=== PATIENT | female | born 1960 | race Caucasian/White ===

== ENCOUNTER 2021-12-22 09:36 | Outpatient (REF) | payer BC, SELFPAY ==
[2021-12-22 11:13] LABS: MANUAL DIFF FLAG NO
[2021-12-22 11:32] LABS: Basophils Absolute Auto 0.1 X10*3/uL (0.0-0.2); Basophils Percent Auto 1.1 % (0-2); Eosinophils Absolute Auto 0.3 X10*3/uL (0.0-0.4); Eosinophils Percent Auto 3.6 % (0-4); Hematocrit 39.5 % (37.0-47.0); Hemoglobin 12.7 g/dl (12.0-16.0); Imm Gran Abs Auto 0.02 X10*3/uL (0.00-0.03); Imm Gran Pct Auto 0.3 % (0.0-0.4); Lymphocytes Absolute Auto 2.8 X10*3/uL (1.2-4.9); Lymphocytes Percent Auto 36.7 % (20-40); Mean Corpuscular HGB Conc 32.2 g/dl (31.0-35.0); Mean Corpuscular Hemoglobin 28.7 pg (27.0-33.0); Mean Corpuscular Volume 89.2 fL (80.0-98.0); Monocytes Absolute Auto 0.6 X10*3/uL (0.1-1.2); Monocytes Percent Auto 7.8 % (2-11); Neutrophils Absolute Auto 3.8 x10*3/uL (2.0-8.3); Neutrophils Percent Auto 50.5 % (45-73); Platelet Count 298 X10*3/uL (160-400); Red Blood Count 4.43 X10*6/uL (4.20-5.50); Red Cell Distribution Width 13.6 % (11.0-16.0); White Blood Count 7.5 X10*3/uL (4.8-10.8)
[2021-12-22 12:09] LABS: Alanine Aminotransferase 17 U/L (0-31); Alkaline Phosphatase 117 U/L (39-117); Anion Gap 13 (12-20); Aspartate Amino Transferase 17 U/L (5-31); Bilirubin Total < 0.2 mg/dL (0.0-1.0); Blood Urea Nitrogen 10 mg/dL (9-16); Calcium 8.9 mg/dL (8.4-10.2); Carbon Dioxide 27 mmol/L (22-29); Chloride 108 mmol/L (96-108); Cholesterol 215 mg/dL; Estimated Glomerular Filt Rate > 60; Glucose Random 101 mg/dL (60-115); HDL Cholesterol 48 mg/dL; LDL Cholesterol Calculated 130 mg/dl; Potassium 5.1 mmol/L (3.3-5.1); Sodium 143 mmol/L (135-145); Total Protein 6.7 g/dL (6.5-8.0); Triglycerides 187 mg/dL
[2021-12-22 12:20] LABS: Free T4 (Free Thyroxine) 0.91 ng/dL (0.71-1.85); Thyroid Stimulating Hormone 2.56 uIU/mL (0.32-4.0); Vitamin D 25-OH Total 32.5 ng/mL (>30)
== END 2021-12-22 09:37 | disposition home or self-care (01) ==
LOC: HO.MANLDS 09:36
PROVIDERS: Visit Provider Physician Assistant
DX: Z00.00 Encounter for general adult medical examination without abnormal findings (principal)
CPT/HCPCS: 36415; 80053; 80061; 82306; 84439; 84443; 85025

== ENCOUNTER 2022-01-29 15:14 | Outpatient (REF) | payer BC, SELFPAY ==
--- NOTE | ~2022-01-29 | MM_ITS ---
EXAMINATION: MM SCREENING DIGITAL BREAST TOMOSYNTHESIS, BILATERAL CLINICAL INFORMATION: Screening. Asymptomatic. The lifetime risk of breast cancer based on the Tyrer-Cuzick Model is 5%. COMPARISON: Mammography: 10/25/2017, 10/13/2011 TECHNIQUE: Digital breast tomosynthesis is performed in both the craniocaudal and mediolateral oblique views along with computer-aided detection (CAD). Synthesized 2D images are generated from the tomosynthesis. Additional left MLO view is provided. FINDINGS: There are scattered areas of fibroglandular density (ACR BI-RADS breast composition Category b). There are no significant masses, abnormal calcifications, or other abnormalities. Breast tissue composition borders on heterogeneously dense. Parenchymal pattern is similar to prior studies. No significant changes. The axilla and skin contours are unremarkable. MM/MM tomosynthesis screening BI IMPRESSION: No mammographic evidence of malignancy. ASSESSMENT: BI-RADS 1: Negative RECOMMENDATION: Routine annual mammography screening. This patient's information was entered into a reminder system with a target due date for their next mammogram.
== END 2022-01-29 15:15 | disposition home or self-care (01) ==
LOC: HO.MAMMO 15:14
PROVIDERS: PCP Internal Medicine; Visit Provider Internal Medicine
DX: Z12.31 Encounter for screening mammogram for malignant neoplasm of breast (principal)
CPT/HCPCS: 77063; 77067

== ENCOUNTER 2022-04-02 14:22 | Outpatient (REF) | payer BC, SELFPAY | END 2022-04-02 14:23 | disposition home or self-care (01) | LOC: HO.SH 14:22 | PROVIDERS: Visit Provider Physician Assistant | DX: Z01.118 Encounter for examination of ears and hearing with other abnormal findings (principal); H90.42 Sensorineural hearing loss, unilateral, left ear, with unrestricted hearing on the contralateral side | CPT/HCPCS: 92552; 92556; 92567; 92588; 92700 ==

== ENCOUNTER 2023-02-09 16:50 | Emergency (ER) | payer BC, SELFPAY ==
--- NOTE | ~2023-02-09 | XR_ITS ---
EXAMINATION: XR CHEST CLINICAL INFORMATION: Chest pain COMPARISON: None available. TECHNIQUE: Frontal view of the chest was obtained. FINDINGS: No significant abnormality is noted involving the heart, lungs, mediastinum, bony thorax or soft tissues. XR/XR chest 1V IMPRESSION: Unremarkable examination.
--- NOTE | 2023-02-09 16:53 | ECG_ITS ---
Test Reason : chest pain Blood Pressure : / mmHG Vent. Rate : 080 BPM Atrial Rate : 080 BPM P-R Int : 136 ms QRS Dur : 092 ms QT Int : 388 ms P-R-T Axes : 055 -06 017 degrees QTc Int : 447 ms Normal sinus rhythm RSR' or QR pattern in V1 suggests right ventricular conduction delay Otherwise normal ECG When compared with ECG of 06-AUG-2007 17:08, No significant change was found Referred By: Sissy Pruitt Electronically Signed By:SOWMYA CISNEROS MD
[2023-02-09 17:07] VITALS: BP 177/88; PULSE 88; RESP 17; TEMP 36.2; O2SAT 94; BMI 24.3
--- NOTE | 2023-02-09 17:08 | ED.CHESTPAIN ---
HPI - Chest Pain General Chief Complaint: Chest Pain Stated Complaint: Chest pain/pressure Time Seen by Provider: 02/09/23 19:32 Related Data Allergies Allergy/AdvReac Type Severity Reaction Status Date / Time No Known Allergies Allergy Unverified 12/28/19 14:44 [facility], [facility] Social History Social History Advance Directives: No Advance Directives Information Provided: No Physical Exam Vital Signs: Vital Signs: Last Vital Signs Temp 98 F 02/09/23 19:29 Pulse 74 02/09/23 19:29 Resp 20 02/09/23 19:29 BP 169/71 H 02/09/23 19:29 Pulse Ox 97 02/09/23 19:29 O2 Del Method Room Air 02/09/23 19:29 BMI result Body Mass Index 24.3 Course Course Course Narrative: RME: 62yo F w/PMHx HTN, HLD, 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 Admits took her BP at home and was elevated (did take her meds today). denies SOB BP 177/88 in triage EKG, labs, CXR ordered Full HPI, ROS and PE to be performed by primary ED provider. Medications Administered Discontinued Medications Generic Name Dose Route Start Last Admin Trade Name Freq PRN Reason Stop Dose Admin Potassium Chloride 40 meq 02/09/23 19:58 02/09/23 20:24 Potassium Chloride Packet 20 Meq Packet PO 02/09/23 19:59 40 meq ONCE ONE Administration Medical Decision Making Lab Data 02/09/23 17:28 02/09/23 17:28 Labs: Lab Results 02/09/23 Range/Units 17:28 WBC 7.2 (4.8-10.8) X10*3/uL RBC 4.78 (4.20-5.50) X10*6/uL Hgb 13.7 (12.0-16.0) g/dl Hct 41.2 (37.0-47.0) % MCV 86.2 (80.0-98.0) fL MCH 28.7 (27.0-33.0) pg MCHC 33.3 (31.0-35.0) g/dl RDW 12.8 (11.0-16.0) % Plt Count 309 (160-400) X10*3/uL MPV 9.3 L (9.4-12.3) fL Immature Gran % (Auto) 0.1 (0.0-0.4) % Neut % (Auto) 42.1 L (45-73) % Lymph % (Auto) 48.4 H (20-40) % [place] % (Auto) 6.3 (2-11) % Eos % (Auto) 2.1 (0-4) % Baso % (Auto) 1.0 (0-2) % Lymph # (Auto) 3.5 (1.2-4.9) X10*3/uL [place] # (Auto) 0.5 (0.1-1.2) X10*3/uL Eos # (Auto) 0.2 (0.0-0.4) X10*3/uL Baso # (Auto) 0.1 (0.0-0.2) X10*3/uL Abs Immat Gran (auto) 0.01 (0.00-0.03) X10*3/uL Absolute Neuts (auto) 3.0 (2.0-8.3) x10*3/uL Absolute Nucleated RBC 0.000 (0.0-0.012) X10*3/uL Nucleated RBC % (auto) 0.0 (0.0-0.2) /100WBC Sodium 142 (135-145) mmol/L Potassium 3.1 L D (3.3-5.1) mmol/L Chloride 106 (96-108) mmol/L Carbon Dioxide 25 (22-29) mmol/L Anion Gap 14 (12-20) BUN 8 L (9-16) mg/dL Creatinine 0.72 (0.5-1.4) mg/dL Estim Creat Clear Calc 68.7 Estimated GFR > 60 Random Glucose 97 (60-115) mg/dL Calcium 9.6 D (8.4-10.2) mg/dL Total Bilirubin 0.1 (0.0-1.0) mg/dL Direct Bilirubin < 0.2 (0.0-0.5) mg/dL AST 17 (5-31) U/L ALT 15 (0-31) U/L Alkaline Phosphatase 117 (39-117) U/L Troponin I High Sens < 2.7 (<3.5-17.0) ng/L Total Protein 7.7 (6.5-8.0) g/dL Albumin 4.3 (3.5-5.0) g/dL Discharge Plan Discharge Clinical Impression: Chest pain Instructions: Noncardiac Chest Pain (ED) Additional Instructions: You were seen emergency room for chest pain. The your lab work including serial troponin, EKG, CBC was unremarkable. Your BMP showed a potassium of 3.1 which was repleted with oral potassium. Chest x-ray was within normal limits. At this time he did not require admission however it is important that she follow-up in the next 7 days with your primary care physician. Your blood pressure in the emergency was mildly elevated, we recommend of home dose losartan. Please discuss possible increment of your blood pressure medication with your primary care physician. We also provided you a referral to 1 of our cardiologists please call to schedule an appointment within the next 2 weeks. If before your able to see your primary care physician you have another episode of chest pain+ please return immediately to the ED for evaluation. Referrals: Sanjeev Mac MD [Physician] -
[2023-02-09 17:33] LABS: MANUAL DIFF FLAG NO
[2023-02-09 17:39] LABS: Basophils Absolute Auto 0.1 X10*3/uL (0.0-0.2); Eosinophils Absolute Auto 0.2 X10*3/uL (0.0-0.4); Eosinophils Percent Auto 2.1 % (0-4); Hematocrit 41.2 % (37.0-47.0); Hemoglobin 13.7 g/dl (12.0-16.0); Imm Gran Abs Auto 0.01 X10*3/uL (0.00-0.03); Imm Gran Pct Auto 0.1 % (0.0-0.4); Lymphocytes Absolute Auto 3.5 X10*3/uL (1.2-4.9); Lymphocytes Percent Auto 48.4 % (20-40); Mean Corpuscular HGB Conc 33.3 g/dl (31.0-35.0); Mean Corpuscular Hemoglobin 28.7 pg (27.0-33.0); Mean Corpuscular Volume 86.2 fL (80.0-98.0); Mean Platelet Volume 9.3 fL (9.4-12.3); Monocytes Absolute Auto 0.5 X10*3/uL (0.1-1.2); Monocytes Percent Auto 6.3 % (2-11); Neutrophils Percent Auto 42.1 % (45-73); Platelet Count 309 X10*3/uL (160-400); Red Blood Count 4.78 X10*6/uL (4.20-5.50); Red Cell Distribution Width 12.8 % (11.0-16.0); White Blood Count 7.2 X10*3/uL (4.8-10.8)
[2023-02-09 18:05] LABS: Alanine Aminotransferase 15 U/L (0-31); Albumin Level 4.3 g/dL (3.5-5.0); Alkaline Phosphatase 117 U/L (39-117); Anion Gap 14 (12-20); Aspartate Amino Transferase 17 U/L (5-31); Bilirubin Direct < 0.2 mg/dL (0.0-0.5); Bilirubin Total 0.1 mg/dL (0.0-1.0); Blood Urea Nitrogen 8 mg/dL (9-16); Calcium 9.6 mg/dL (8.4-10.2); Carbon Dioxide 25 mmol/L (22-29); Chloride 106 mmol/L (96-108); Creatinine Clr Calc Pharmacy 68.7; Estimated Glomerular Filt Rate > 60; Glucose Random 97 mg/dL (60-115); Potassium 3.1 mmol/L (3.3-5.1); Sodium 142 mmol/L (135-145); Total Protein 7.7 g/dL (6.5-8.0)
[2023-02-09 18:13] LABS: Troponin-I High Sensitivity < 2.7 ng/L (<3.5-17.0)
[2023-02-09 19:29] VITALS: BP 169/71; PULSE 74; RESP 20; TEMP 36.6; O2SAT 97
--- NOTE | 2023-02-09 19:42 | ED_ITS ---
HPI - Chest Pain General Chief Complaint: Chest Pain Stated Complaint: Chest pain/pressure Time Seen by Provider: 02/09/23 19:32 Source: patient Limitations: no limitations History of Present Illness HPI narrative: 62 years old with past medical history of GERD and hypertension, presents emergency room for chest pain. 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 She then measured blood pressure which was elevated and sat down. While sitting down patient reports a 2nd episode of chest pain also lasting a few minutes and then completely resolved without any intervention. At the time of examination patient reports that her symptoms have resolved, she denies shortness of breath, chills, fever. She is not a smoker, she reports family history of CAD. Patient denies abdominal pain nausea or vomiting, reports intermittent episodes of diarrhea. Patient denies dizziness, lightheadedness, syncope. Risk Factors Coronary artery disease risk factors: hypertension Related Data Allergies Allergy/AdvReac Type Severity Reaction Status Date / Time No Known Allergies Allergy Unverified 12/28/19 14:44 Review of Systems 2 Review of Systems: Yes all other systems are reviewed and are negative [facility] Social History Social History Advance Directives: No Advance Directives Information Provided: No Physical Exam 2 Vital Signs: Vital Signs: Last Vital Signs Temp 98 F 02/09/23 19:29 Pulse 74 02/09/23 19:29 Resp 20 02/09/23 19:29 BP 169/71 H 02/09/23 19:29 Pulse Ox 97 02/09/23 19:29 O2 Del Method Room Air 02/09/23 19:29 BMI result Body Mass Index 24.3 General: Alert, Not in Distress Skin: No rash, warm HEENT: Atraumatic, No Exudate or Pharyngeal Erythema Resp: Normal Breath sounds bilaterally Cardio: Regular rate and Rhythm, Normal S1, S2 Pain is reproducible with palpation. ABD: Abd soft, non tender, no guarding or rebound. Normal Bowel sounds. : No cva tenderness Neuro: Alert, oriented x4, PERRL Strenght 5/5 on all extremities Sensation is preserved in both lower and upper extremities Index to nose: normal Cranial Nerves II-XII grossly intact No dysarthria, or aphasia No neglet. Visual george are normal bilaterally Psych: Cooperative, NO SI Course Reevaluation(s) Reevaluation #1: Patient reports no chest pain, did EKG is unchanged. Second troponin is pending. If negative will discharge patient home. I discussed return precaution with patient including the need to return in case she has another episode of chest pain, shortness of breath, lightheadedness or syncope, patient understands and agrees. Time: 20:48 Reevaluation #2: Second troponin is negative. Patient has a heart score of 3, 2 EKG leads are unchanged, she is not symptomatic for chest pain at this time and pain did not appear to have typical features. 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 Will DC home. Time: 20:55 Medications Administered Discontinued Medications Generic Name Dose Route Start Last Admin Trade Name Freq PRN Reason Stop Dose Admin Potassium Chloride 40 meq 02/09/23 19:58 02/09/23 20:24 Potassium Chloride Packet 20 Meq Packet PO 02/09/23 19:59 40 meq ONCE ONE Administration Medical Decision Making Medical Decision Making MDM Narrative: 62 years old presenting to the emergency room for intermittent episodes of chest pain. Patient heart score is 3 based on age, risk factor and history. Patient reports the pain which in 1 occasion occurred while patient was clinic otherwise does not appears to be exertional, she will was able to walk today without any chest pain and is comfortable the time of examination. Patient lab work showed normal CBC, moderate hypokalemia, negative troponin. I personally reviewed patient's chest x-ray which is normal. I personally reviewed EKG shows normal sinus rhythm. Impression: Musculoskeletal pain, atypical chest pain, costochondritis, ACS Plan: Replete potassium, repeat 2nd troponin Continue to observe patient. Patient has had a score of 3 if 2nd troponin is negative, i think she could be a good candidate for outpatient work up Admission/Observation Consideration of admission/observation: Escalation of care including admission/observation considered Lab Data 02/09/23 17:28 02/09/23 17:28 Labs: Lab Results 02/09/23 02/09/23 Range/Units 17:28 20:15 WBC 7.2 (4.8-10.8) X10*3/uL RBC 4.78 (4.20-5.50) X10*6/uL Hgb 13.7 (12.0-16.0) g/dl Hct 41.2 (37.0-47.0) % MCV 86.2 (80.0-98.0) fL MCH 28.7 (27.0-33.0) pg MCHC 33.3 (31.0-35.0) g/dl RDW 12.8 (11.0-16.0) % Plt Count 309 (160-400) X10*3/uL MPV 9.3 L (9.4-12.3) fL Immature Gran % (Auto) 0.1 (0.0-0.4) % Neut % (Auto) 42.1 L (45-73) % Lymph % (Auto) 48.4 H (20-40) % Pine % (Auto) 6.3 (2-11) % Eos % (Auto) 2.1 (0-4) % Baso % (Auto) 1.0 (0-2) % Lymph # (Auto) 3.5 (1.2-4.9) X10*3/uL [place] # (Auto) 0.5 (0.1-1.2) X10*3/uL Eos # (Auto) 0.2 (0.0-0.4) X10*3/uL Baso # (Auto) 0.1 (0.0-0.2) X10*3/uL Abs Immat Gran (auto) 0.01 (0.00-0.03) X10*3/uL Absolute Neuts (auto) 3.0 (2.0-8.3) x10*3/uL Absolute Nucleated RBC 0.000 (0.0-0.012) X10*3/uL Nucleated RBC % (auto) 0.0 (0.0-0.2) /100WBC Sodium 142 (135-145) mmol/L Potassium 3.1 L D (3.3-5.1) mmol/L Chloride 106 (96-108) mmol/L Carbon Dioxide 25 (22-29) mmol/L Anion Gap 14 (12-20) BUN 8 L (9-16) mg/dL Creatinine 0.72 (0.5-1.4) mg/dL Estim Creat Clear Calc 68.7 Estimated GFR > 60 Random Glucose 97 (60-115) mg/dL Calcium 9.6 D (8.4-10.2) mg/dL Total Bilirubin 0.1 (0.0-1.0) mg/dL Direct Bilirubin < 0.2 (0.0-0.5) mg/dL AST 17 (5-31) U/L ALT 15 (0-31) U/L Alkaline Phosphatase 117 (39-117) U/L Troponin I High Sens < 2.7 < 2.7 (<3.5-17.0) ng/L Total Protein 7.7 (6.5-8.0) g/dL Albumin 4.3 (3.5-5.0) g/dL Scores Heart Score History: -1- moderately suspicious ECG: -0- normal Age: -1- >45 - <65 Risk factory: -1- 1 or 2 risk factors Troponin: -0- < or = normal limit Score: 3 Risk: 1.7% Discharge Plan Discharge Clinical Impression: Chest pain Instructions: Noncardiac Chest Pain (ED) Additional Instructions: You were seen emergency room for chest pain. The your lab work including serial troponin, EKG, CBC was unremarkable. Your BMP showed a potassium of 3.1 which was repleted with oral potassium. Chest x-ray was within normal limits. At this time he did not require admission however it is important that she follow-up in the next 7 days with your primary care physician. Your blood pressure in the emergency was mildly elevated, we recommend of home dose losartan. Please discuss possible increment of your blood pressure medication with your primary care physician. We also provided you a referral to 1 of our cardiologists please call to schedule an appointment within the next [address] chan office to schedule an appointment If before your able to see your primary care physician you have another episode of chest pain+ please return immediately to the ED for evaluation. Referrals: Sanjeev Chan MD [Physician] - (call to schedule an appointment)
[2023-02-09] MEDS: Potassium Chloride Packet 20 MEQ PACKET 40 MEQ PO (20:24)
--- NOTE | 2023-02-09 20:34 | ECG_ITS ---
Test Reason : CHEST PAIN Blood Pressure : / mmHG Vent. Rate : 073 BPM Atrial Rate : 073 BPM P-R Int : 146 ms QRS Dur : 084 ms QT Int : 400 ms P-R-T Axes : 056 010 010 degrees QTc Int : 440 ms Normal sinus rhythm Normal ECG When compared with ECG of 09-FEB-2023 17:20, No significant change was found Referred By: Bunny Yanes Electronically Signed By:SOWMYA CISNEROS MD
[2023-02-09 20:53] LABS: Troponin-I High Sensitivity < 2.7 ng/L (<3.5-17.0)
[2023-02-09 21:12] VITALS: BP 140/71; PULSE 78; RESP 16; O2SAT 95
== END 2023-02-09 21:14 | disposition home or self-care (01) ==
PROVIDERS: Physician Assistant; Emergency Provider Student in an Organized Health Care Education/Training Program; PCP Internal Medicine
DX: R07.9 Chest pain, unspecified (principal); I10 Essential (primary) hypertension; E78.5 Hyperlipidemia, unspecified
CPT/HCPCS: 36415; 71045; 80048; 80076; 84484; 85025; 93005; 99283; 99285

== ENCOUNTER 2023-03-09 11:25 | Outpatient (REF) | payer BC, SELFPAY ==
--- NOTE | ~2023-03-09 | XR_ITS ---
EXAMINATION: XR SHOULDER, LEFT CLINICAL INFORMATION: Reason for Exam PAIN IN LEFT SHOULDER COMPARISON: None TECHNIQUE: Four views of the shoulder. FINDINGS: No acute fracture or dislocation. Mild degenerative changes of the glenohumeral joint joint with degenerative spurring. Soft tissues are unremarkable. XR/XR shoulder LT min 2V IMPRESSION: * Mild degenerative changes of the shoulder.
[2023-03-09 12:58] LABS: Anion Gap 11 (12-20); Blood Urea Nitrogen 13 mg/dL (9-16); Calcium 9.6 mg/dL (8.4-10.2); Carbon Dioxide 29 mmol/L (22-29); Chloride 106 mmol/L (96-108); Estimated Glomerular Filt Rate > 60; Glucose Random 105 mg/dL (60-115); Potassium 4.2 mmol/L (3.3-5.1); Sodium 142 mmol/L (135-145)
== END 2023-03-09 11:26 | disposition home or self-care (01) ==
LOC: HO.LAB 11:25
PROVIDERS: PCP Internal Medicine; Visit Provider Physician Assistant
DX: M25.512 Pain in left shoulder (principal); E87.6 Hypokalemia
CPT/HCPCS: 36415; 73030; 80048

== ENCOUNTER → 2023-03-10 07:38 | Outpatient (REF) | payer BC, SELFPAY ==
--- NOTE | 2023-03-10 07:41 | CA_ITS ---
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 Normal LV ejection fraction of 60 65% with pseudonormal filling pattern 2. Normal cardiac valvular Doppler 3. Normal RV systolic pressure 4. Small pericardial effusion Findings Procedure Information Contrast agent, definity, is being given per protocol without apparent complications. Left Ventricle Normal left ventricular size, thickness, and systolic function. The visually estimated ejection fraction is between 60-65%. Spectral Doppler is indicative of a pseudonormal filling pattern. E/E prime ratio is between 8 and 15 consistent with indeterminate filling pressures. Right Ventricle Normal right ventricular cavity size and systolic function. Atria The left atrium is likely dilated. Interatrial shunt cannot be excluded. The right atrium is normal in size. Aortic Valve The aortic valve was not well visualized. The aortic valve structure and function is likely normal. There is no aortic valve stenosis. There is no aortic valve regurgitation. Mitral Valve Likely normal mitral valve structure and function. There is trace mitral valve regurgitation. There is no mitral valve stenosis. Pulmonic Valve The pulmonic valve was not well visualized. Tricuspid Valve Likely normal tricuspid valve structure and function. There is trace tricuspid valve regurgitation. The right ventricular systolic pressure is normal. The right ventricular systolic pressure is 27 mmHg. Normal right atrial pressure. There is no evidence of pulmonary hypertension. Great Vessels All visible segments of the aorta are normal in size. The pulmonary artery was not well visualized. Venous The inferior vena cava is normal in size and collapses greater than 50% with inspiration. Pericardium/Pleural There is a small circumferential pericardial effusion. There are no definitive echocardiographic findings of tamponade physiology. Prior Study Comparison No prior study available for comparison. Measurements 2D Linear Measurements IVSd: 1.07 0.6-0.9/0.6-1.0 cm LVIDd: 4.68 3.9-5.3/4.2-5.9 cm LVIDd Index: 2.84 2.4-3.2/2.2-3.1 cm/m2 LVIDs: 2.36 2.0-3.6 cm LVPWd: 0.91 0.7-1.1 cm LA Diam: 4.10 2.7-3.8/3.0-4.0 cm LAIDs Index: 2.48 1.5-2.3 cm/m2 LV Mass: 200.48 67-162/88-224 g LV Mass Index: 121.50 43-95/49-115 g/m2 LVOT Diam: 1.80 3.0+(-)1.3 cm 2D Systolic Function EF 4C: 63.10 >55% EF 2C: 68.70 >55% EF BiP: 65.50 >55% Mitral Valve MV Pk E: 1.05 MV PK A: 0.94 MV Decel Time: 156.00 E/A: 1.10 E'Lateral: 6.64 E'Medial: 4.57 E/E' Med: 23.00 E/E' Lat: 15.80 PHT: 46.00 MVA PHT: 4.78 Decel Emanuel: 6.72 Aortic Valve AoV Pk Balwinder: 1.35 AoV Pk Grad: 7.00 RU: 1.97 LVOT LVOT Pk Balwinder: 1.02 LVOT Mn Balwinder: 0.71 LVOT VTI: 0.22 LVOT Pk Grad: 4.00 LVOT Mn Grad: 2.00 LVOT Diam: 1.80 LVOT Area: 2.54 Diastolic Function MV Pk E: 1.05 MV Pk A: 0.94 E/A: 1.10 E'Medial: 4.57 E/E' Med: 23.00 E' Laterial: 6.64 E/E' Lat: 15.80 Right Ventricle TAPSE (mm): 14.60 TVS' Balwinder: 11.40 Tricuspid Valve TR Pk Balwinder: 2.44 TR Pk Grad: 24.00 RA Press: 3.00 RVSP: 27.00 Great Vessels Aorta Sinus of Valsalva: 2.30 2.0-3.5 cm Ao Asc: 2.70 2.1-3.4 cm Ao Arch: 2.50 Pulmonary Veins Pulm Vein S/D 1.40 Pulmonary Valve PV Pk Balwinder: 0.86 Peak PV Grad: 3.00 Updated in Other Vendor System with Status of Final Honorio Carrera MD electronically signed on 03/11/2023 1:40:40 PM with status of Final
--- NOTE | 2023-03-10 09:00 | CA_ITS ---
Acquisition Time: 2023-03-10 08:54:42 Total Exercise Time: 00:05:12 Test Indications: CP Medications: SEE H Protocol: BLUE Max HR: 151 BPM 94% of Pred: 160 BPM Max BP: 152/068 mmHG Max Work Load: 7.0 METS Exercise stress test exercise 5 min 12 sec of Blue protocol achieving 94% MPHR, without anginal symptoms, with isolated PVCs, with normotensive repsonse to exericse, without EKG changes. Test reviewed with Dr. Carrera Referred By: Leda Rizvi Overread By: Trisha Rosenbaum
== END ==
LOC: HO.CARD 07:38
PROVIDERS: PCP Internal Medicine; Visit Provider Physician Assistant
DX: R07.89 Other chest pain (principal)
CPT/HCPCS: 93017; 93306; Q9957

== ENCOUNTER → 2023-03-10 09:00 | Outpatient (BNV) | payer BC, SELFPAY | PROVIDERS: PCP Internal Medicine; Visit Provider Nurse Practitioner | DX: I31.39 Other pericardial effusion (noninflammatory) (principal); R07.89 Other chest pain | CPT/HCPCS: 93016; 93018; 93306 ==

== ENCOUNTER 2023-07-14 13:48 | Emergency (ER) | payer OTHER, SELFPAY ==
--- NOTE | ~2023-07-14 | CT_ITS ---
STUDY: Unenhanced CT of the head and cervical spine INDICATION: Fall COMPARISON: None TECHNIQUE: Continuous helical imaging obtained through the head and cervical spine without IV contrast. Reconstructed images performed in the coronal and sagittal planes. This CT examination was performed using dose optimization techniques as appropriate, variously including the following: *Automated exposure control *Adjustment of mA and/or kV according to patient size (this includes techniques or standardized protocols for targeted exams where dose is matched to indication/reason for exam; i.e. extremities or head) *Use of iterative reconstruction technique TOTAL EXAM DLP: 620 and 262 mGy-cm, head and cervical spine respectively. FINDINGS: Head: Mild atrophy. No intracranial hemorrhage, extra-axial fluid collections fractures or soft tissue hematomas identified following trauma. No evolving infarct, mass lesion, mass effect or midline shift. Intraorbital structures are unremarkable. Sinuses and mastoids free of disease. Cervical spine: Reversal of normal cervical lordosis. Trace anterolisthesis C4 on C5. Mild C5 and C6 vertebral body height losses likely degenerative. C5-C6-C6, 7 spurring and disc space narrowings. Mild right C5-C6 neuroforaminal narrowing. No spinal canal narrowings. Odontoid is intact, posterior elements are aligned and no prevertebral soft tissue swelling seen. Visualized naso and oropharynx are unremarkable. Study limited by motion but soft tissue prominence posterior trachea, axial 12:182 is seen. It is unclear if this is supraglottic or extrinsic and related to the esophagus. Unremarkable thyroid. No pathologic lymphadenopathy. Minor apical pleural thickening otherwise lung apices are clear. CT/CT cervical spine wo IV con IMPRESSION: No acute intracranial or cervical spine pathology. Cervical lordotic reversal and cervical spondylosis. Posterior tracheal tissue density, unclear if supraglottic versus esophageal. Correlate clinically.
--- NOTE | ~2023-07-14 | CT_ITS ---
EXAMINATION: CT ANGIOGRAM CHEST CLINICAL INFORMATION: Chest pain radiating to left back with differing blood pressures in the arms COMPARISON: Chest radiograph 07/14/2023 TECHNIQUE: Multiple axial images were obtained through the chest after the administration of 70 mL of Omnipaque 350 intravenous contrast. Extensive vascular post-processing including two-dimensional and three-dimensional reformatted images were created and reviewed on an independent workstation. This CT examination was performed using dose optimization techniques as appropriate, variously including the following: *Automated exposure control *Adjustment of mA and/or kV according to patient size (this includes techniques or standardized protocols for targeted exams where dose is matched to indication/reason for exam; i.e. extremities or head) *Use of iterative reconstruction technique DLP: 228 mGy-cm VASCULAR FINDINGS: The thoracic aorta appears normal without evidence of aneurysm or dissection. A 4 vessel branching pattern of the arch is seen with a separate origin of the left vertebral artery. The great vessels are all widely patent. The small visualized portion of the abdominal aorta appears unremarkable with patent celiac and SMA. Although not carried out for evaluation of the pulmonary arteries, they're exceptionally well seen and there is no pulmonary emboli detected. The pulmonary veins are unremarkable. NONVASCULAR FINDINGS: LUNGS: The lungs are clear with no evidence of inflammation or nodules. MEDIASTINUM: The mediastinum is normal. CORONARY ARTERY CALCIFICATION: Absent PLEURA: There is no pleural effusion. No pleural mass or thickening. AXILLA: No lymphadenopathy. UPPER ABDOMEN: Unremarkable. OSSEOUS STRUCTURES: Unremarkable. CT/CT angio chest aorta IMPRESSION: No evidence of aortic dissection or aneurysm. No pulmonary emboli are detected. Fleischner guidelines were followed.
--- NOTE | ~2023-07-14 | XR_ITS ---
EXAMINATION: XR CHEST CLINICAL INFORMATION: Pain COMPARISON: 05/12/2022 TECHNIQUE: 2 views of the chest were obtained. FINDINGS: No significant abnormality is noted involving the heart, lungs, mediastinum, bony thorax or soft tissues. XR/XR chest 2V IMPRESSION: Unremarkable examination with no interval change.
[2023-07-14 13:53] VITALS: BP 144/96; PULSE 78; RESP 20; TEMP 36.5; O2SAT 100; BMI 23.9
--- NOTE | 2023-07-14 13:53 | ED.GENADULT ---
HPI - General Adult General Chief complaint: General Medical Stated complaint: High BP, pain L shoulder/arm Time Seen by Provider: 07/14/23 14:56 Source: patient and old records reviewed Mode of arrival: ambulatory Limitations: no limitations History of Present Illness HPI narrative: 63 yo female with PMH of HTN on clonidine, HLD, arthritis, anxiety here with c/o L upper clavicle and shoulder pain intermittent not related to exertion or movement but does hurt to touch. Has also had intermittent stinging in L neck area. BP was elevated this AM 178/80 but takes her clonidine at night. BP was lower in R arm 140s. She has no pain now. She did slip and fall in shower last night no LOC or headstrike - she slipped on the floor. She has not had pain like this before. MD complaint: elevated BP, pain in upper chest and L shoulder Onset (ago): day(s) (last night) Location: chest, left and upper extremity Radiation: non-radiation Severity: moderate Quality: aching Pain Consistency: intermittent Relieving factors: none Exacerbating factors: movement Associated symptoms: denies other symptoms Related Data Allergies Allergy/AdvReac Type Severity Reaction Status Date / Time No Known Allergies Allergy Unverified 12/28/19 14:44 Review of Systems Review of Systems: Constitutional : No Weight loss, No Fever, No Chills ENT/Mouth : No sore throat, No Rhinorrhea Eyes: No Eye Pain, No Swelling Cardiovascular : pos Chest Pain, no SOB, no Dyspnea on Exertion, No Orthopnea, No Edema, No Palpitations Respiratory : No Cough, No Sputum Gastrointestinal : no Nausea, No Vomiting, No Diarrhea, No abdominal Pain, No Hematochezia, No Melena Genitourinary : No Dysuria, No Urinary Frequency Musculoskeletal : No joint pain, No Myalgias, No Joint Swelling Skin : No Skin Lesions, No rash Neuro : No Weakness, No Numbness, No Dizziness, No Headache Psych : No Anxiety/Panic, No Depression All other systems reviewed and are negative FOR[facility]LY [facility], [facility] Past Medical History Attestation statement: The following information was validated with the patient. Source: old records reviewed Medical History Hyperlipidemia Anxiety HTN (hypertension) Social History Social History (Updated 07/14/23 @ 15:25 by Lisandra Enid, DO) Alcohol intake: current Alcohol intake frequency: holidays/special occasions only Patient Tobacco Use Status: Tobacco use Unknown Smoked in Last 30 Days: No Use of substances other than those prescribed or required for medical reasons: No Advance Directives: No Advance Directives Information Provided: Yes Physical Exam ED Vital Signs: Vital Signs - 24 hr 07/14/23 13:53 07/14/23 15:39 07/14/23 18:31 Temperature 97.7 F 98.6 F 97.7 F Pulse Rate 78 72 85 Respiratory Rate 20 17 18 Blood Pressure 144/96 H 139/74 165/88 H Pulse Oximetry 100 96 98 Oxygen Delivery Method Room Air Room Air Room Air 07/14/23 18:32 Temperature 97.7 F Pulse Rate 85 Respiratory Rate 16 Blood Pressure 165/93 H Pulse Oximetry 98 Oxygen Delivery Method Room Air BMI result Body Mass Index 23.9 Appearance: Alert. Oriented X3. No acute distress. Eyes: Pupils equal, round and reactive to light. ENT: Pharynx normal. Neck: Normal inspection. Neck supple. CVS: Normal heart rate and rhythm. Pulses normal. Chest: ttp along L upper chest wall Respiratory: No respiratory distress. Breath sounds normal. Abdomen: Soft and nontender. Skin: Skin warm and dry. Normal skin color. Normal skin turgor. Extremities: No lower extremity edema. No calf ttp Neuro: Oriented X 3. No motor deficit. No sensory deficit. Course Course Course Narrative: This is an RME: Additional HPI, ROS, PE not included below will be deferred to primary provider. This is a [id number]-female, with a hx of GERD and HTN, who presents to the ER with complaints of intermittent left sided chest pain and left shoulder pain since this morning. CP last for about 1 hour and resolves on its own, no current CP. Reporting that last night when she took a shower she flipped backward , reporting that she thinks it was slippery and she fell backwards. Blood pressure varied in both arms, 144/96 in right arm, left arm 170/80. Given discrepancies in blood pressure, talk to charge nurse to bring patient back to a room. She is well-appearing, no back pain or current chest pain. Plan: EKG chest x-ray, CT head and neck, chest x-ray, labs Medications Administered Discontinued Medications Generic Name Dose Route Start Last Admin Trade Name Freq PRN Reason Stop Dose Admin Iohexol 100 ml 07/14/23 17:15 07/14/23 17:16 Iohexol 350 Mg/Ml 100 Ml Infus..Btl IV 07/14/23 17:16 70 ml ONCE ONE Administration Medical Decision Making Medical Decision Making [facility] Narrative: 63 yo female with PMH of HTN on clonidine, HLD, arthritis, anxiety here with c/o L sided chest pain into L shoulder area with differing BP on both arms at this time CT scan of aorta ordered. Trop x 1 ordered pain > 6 hrs. EKG nonischemic. Has no risk factors for VTE no tachycardia, hypoxia or signs of DVT. Did slip in shower last night but no head strike or LOC - CT scans from triage ordered. Differential Diagnosis Differential Diagnoses: The differential diagnosis associated with the presentation includes dissection, chest pain, chest wall pain, anxiety Admission/Observation Consideration of admission/observation: Escalation of care including admission/observation considered work up negative stable for DC Lab Data [facility] Lab Attestation statement: I reviewed the patient's lab results. 07/14/23 14:08 07/14/23 14:08 Labs: Lab Results 07/14/23 07/14/23 Range/Units 14:08 16:21 WBC 8.5 (4.8-10.8) X10*3/uL RBC 4.97 (4.20-5.50) X10*6/uL Hgb 14.2 (12.0-16.0) g/dl Hct 42.9 (37.0-47.0) % MCV 86.3 (80.0-98.0) fL MCH 28.6 (27.0-33.0) pg MCHC 33.1 (31.0-35.0) g/dl RDW 13.2 (11.0-16.0) % Plt Count 300 (160-400) X10*3/uL MPV 9.2 L (9.4-12.3) fL Immature Gran % (Auto) 0.1 (0.0-0.4) % Neut % (Auto) 39.4 L (45-73) % Lymph % (Auto) 52.0 H (20-40) % Person % (Auto) 5.3 (2-11) % Eos % (Auto) 2.1 (0-4) % Baso % (Auto) 1.1 (0-2) % Lymph # (Auto) 4.4 (1.2-4.9) X10*3/uL Person # (Auto) 0.5 (0.1-1.2) X10*3/uL Eos # (Auto) 0.2 (0.0-0.4) X10*3/uL Baso # (Auto) 0.1 (0.0-0.2) X10*3/uL Abs Immat Gran (auto) 0.01 (0.00-0.03) X10*3/uL Absolute Neuts (auto) 3.3 (2.0-8.3) x10*3/uL Absolute Nucleated RBC 0.000 (0.0-0.012) X10*3/uL Nucleated RBC % (auto) 0.0 (0.0-0.2) /100WBC Sodium 142 (135-145) mmol/L Potassium 3.7 (3.3-5.1) mmol/L Chloride 106 (96-108) mmol/L Carbon Dioxide 28 (22-29) mmol/L Anion Gap 12 (12-20) BUN 11 (9-16) mg/dL Creatinine 0.78 (0.5-1.4) mg/dL Estim Creat Clear Calc 62.6 Estimated GFR > 60 Random Glucose 93 (60-115) mg/dL Calcium 9.5 (8.4-10.2) mg/dL Magnesium 2.1 (1.6-2.6) mg/dL Total Bilirubin 0.2 (0.0-1.0) mg/dL Direct Bilirubin < 0.2 (0.0-0.5) mg/dL AST 18 (5-31) U/L ALT 17 (0-31) U/L Alkaline Phosphatase 113 (39-117) U/L Troponin I High Sens < 2.7 < 2.7 (<3.5-17.0) ng/L B-Natriuretic Peptide 23 (<100) pg/mL Total Protein 7.7 (6.5-8.0) g/dL Albumin 4.3 (3.5-5.0) g/dL Lipase 23 (8-78) U/L TSH 2.28 (0.32-4.0) uIU/mL Independent Interpretation I performed an independent interpretation of an: EKG, Plain X-Ray (normal ) and CT Scan (no acute findings. ) Interpretation: Rate: 74 Rhythm: NSR Kaplan: left Normal P waves. Normal LEYDA. Normal QRS complex. ST T wave : normal no ARY qTC: 421 prior studies: no acute ischemia The study has been interpreted contemporaneously by me. . Radiology Impression Discussion of test interpretation with radiology: I have reviewed the radiologist's reading. External Record Review External record reviewed: Inpatient record Prescription Management I considered prescription management with: Other Discharge Plan Discharge Clinical Impression: Atypical chest pain Patient Disposition: Home, Self-Care Instructions: Chest Pain (ED) Additional Instructions: labs on repeat normal for heart, electrocardiogram was normal, normal aorta and no blood clot there was a small area of enlarged tissue seen by trachea your doctor can follow this may need ENT referral return for any worsening symptoms or concerns. your blood pressure has been trending normal now soft tissue prominence posterior trachea Referrals: Mike Da Silva MD [Primary Care Provider] - 1 week Interventions: ED Discharge Assessment Last Done: 07/14/23 18:32 Discharge Date/Time: 07/14/23 18:33
--- NOTE | 2023-07-14 13:58 | ECG_ITS ---
Test Reason : chest pain Blood Pressure : / mmHG Vent. Rate : 074 BPM Atrial Rate : 074 BPM P-R Int : 132 ms QRS Dur : 090 ms QT Int : 380 ms P-R-T Axes : 056 -11 013 degrees QTc Int : 421 ms Normal sinus rhythm Cannot rule out Inferior infarct , age undetermined Abnormal ECG When compared with ECG of 09-FEB-2023 20:42, No significant change was found Referred By: Mine Trevizo Electronically Signed By:ALEXANDRA AARON MD
[2023-07-14 14:13] LABS: MANUAL DIFF FLAG NO
[2023-07-14 14:15] LABS: Basophils Absolute Auto 0.1 X10*3/uL (0.0-0.2); Basophils Percent Auto 1.1 % (0-2); Eosinophils Absolute Auto 0.2 X10*3/uL (0.0-0.4); Eosinophils Percent Auto 2.1 % (0-4); Hematocrit 42.9 % (37.0-47.0); Hemoglobin 14.2 g/dl (12.0-16.0); Imm Gran Abs Auto 0.01 X10*3/uL (0.00-0.03); Imm Gran Pct Auto 0.1 % (0.0-0.4); Lymphocytes Absolute Auto 4.4 X10*3/uL (1.2-4.9); Mean Corpuscular HGB Conc 33.1 g/dl (31.0-35.0); Mean Corpuscular Hemoglobin 28.6 pg (27.0-33.0); Mean Corpuscular Volume 86.3 fL (80.0-98.0); Mean Platelet Volume 9.2 fL (9.4-12.3); Monocytes Absolute Auto 0.5 X10*3/uL (0.1-1.2); Monocytes Percent Auto 5.3 % (2-11); Neutrophils Absolute Auto 3.3 x10*3/uL (2.0-8.3); Neutrophils Percent Auto 39.4 % (45-73); Platelet Count 300 X10*3/uL (160-400); Red Blood Count 4.97 X10*6/uL (4.20-5.50); Red Cell Distribution Width 13.2 % (11.0-16.0); White Blood Count 8.5 X10*3/uL (4.8-10.8)
[2023-07-14 14:33] LABS: Alanine Aminotransferase 17 U/L (0-31); Albumin Level 4.3 g/dL (3.5-5.0); Alkaline Phosphatase 113 U/L (39-117); Anion Gap 12 (12-20); Aspartate Amino Transferase 18 U/L (5-31); Bilirubin Direct < 0.2 mg/dL (0.0-0.5); Bilirubin Total 0.2 mg/dL (0.0-1.0); Blood Urea Nitrogen 11 mg/dL (9-16); Calcium 9.5 mg/dL (8.4-10.2); Carbon Dioxide 28 mmol/L (22-29); Chloride 106 mmol/L (96-108); Creatinine Clr Calc Pharmacy 62.6; Estimated Glomerular Filt Rate > 60; Glucose Random 93 mg/dL (60-115); Lipase 23 U/L (8-78); Magnesium 2.1 mg/dL (1.6-2.6); Potassium 3.7 mmol/L (3.3-5.1); Sodium 142 mmol/L (135-145); Total Protein 7.7 g/dL (6.5-8.0)
[2023-07-14 14:43] LABS: Troponin-I High Sensitivity < 2.7 ng/L (<3.5-17.0)
[2023-07-14 15:39] VITALS: BP 139/74; PULSE 72; RESP 17; TEMP 37; O2SAT 96
[2023-07-14 16:47] LABS: B Type Natriuretic Peptide 23 pg/mL (<100)
[2023-07-14 16:55] LABS: Troponin-I High Sensitivity < 2.7 ng/L (<3.5-17.0)
[2023-07-14 17:01] LABS: TSH reflex Free T4 2.28 uIU/mL (0.32-4.0)
[2023-07-14] MEDS: iohexoL 350 MG/ML 100 ML INFUS..BTL IV (17:16)
[2023-07-14 18:31] VITALS: BP 165/88; PULSE 85; RESP 18; TEMP 36.5; O2SAT 98
[2023-07-14 18:32] VITALS: BP 165/93; PULSE 85; RESP 16; TEMP 36.5; O2SAT 98
== END 2023-07-14 18:33 | disposition home or self-care (01) ==
PROVIDERS: Physician Assistant Medical; Emergency Provider Emergency Medicine; PCP Internal Medicine
DX: R07.89 Other chest pain (principal); I10 Essential (primary) hypertension; Z91.81 History of falling; Z79.899 Other long term (current) drug therapy
CPT/HCPCS: 36415; 70450; 71046; 71275; 72125; 80048; 80076; 83690; 83735; 83880; 84443; 84484; 85025; 93005; 99284; Q9967

== ENCOUNTER → 2023-07-14 13:58 | Outpatient (BNV) | payer OTHER, SELFPAY | PROVIDERS: Emergency Provider Emergency Medicine; PCP Internal Medicine; Visit Provider Internal Medicine Cardiovascular Disease | DX: R07.9 Chest pain, unspecified (principal); R94.31 Abnormal electrocardiogram [ECG] [EKG] | CPT/HCPCS: 93010 ==

== ENCOUNTER 2024-08-22 14:48 | Emergency (ER) | payer OTHER, SELFPAY ==
--- NOTE | ~2024-08-22 | US_ITS ---
EXAMINATION: US TRIPLEX LOWER EXTREMITY, RIGHT CLINICAL INFORMATION: Calf pain. COMPARISON: None available. TECHNIQUE: Color-flow triplex imaging with spectral analysis and compression Doppler were performed on the right lower extremity. FINDINGS: Respiratory variation, normal compression and augmented flow are noted throughout the right lower extremity. The visualized common femoral vein, superficial femoral vein, profunda femoral vein, popliteal vein and midcalf peroneal and posterior tibial venous segments show no evidence of deep venous thrombosis. There is no Costello's cyst. US/US venous duplex LE RT IMPRESSION: No evidence of deep venous thrombosis involving the right lower extremity. Electronically signed by: Hussein Rosenbaum MD 08/22/2024 04:10 PM EDT
--- NOTE | 2024-08-22 14:58 | ED_ITS ---
HPI - General Adult General Chief complaint: Extremity Injury, Lower Stated complaint: Blood clot R leg? Sent by Time Seen by Provider: 08/22/24 17:38 Source: patient Mode of arrival: ambulatory History of Present Illness ED Provider: Dr. 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 and she had not had this problem before she is concerned there is something worse going on in the past when she has had this problem is related to sciatica or herniated disc Related Data Previous Rx's ?Medication ?Instructions ?Recorded acetaminophen 325 mg tablet 325 mg PO QID PRN pain #90 tabs 08/22/24 (Tylenol) lidocaine 5 % topical patch 1 patch topical DAILY back pain 08/22/24 #30 ea prednisone 20 mg tablet 60 mg (3 x 20 mg) PO DAILY Asthma 08/22/24 5 days #15 tabs Allergies Allergy/AdvReac Type Severity Reaction Status Date / Time No Known Allergies Allergy Verified 08/22/24 15:16 Review of Systems 2 Review of Systems: Review of systems: General: Patient denies any fever chills recent illness or falls Musculoskeletal: Denies back pain or body aches or other injuries HEENT: denies headache, runny nose, ear pain Respiratory: denies shortness of breath, cough Cardiovascular: no chest pain or palpitations : denies dysuria, frequency Abdomen: no nausea vomiting denies abdominal pain Extremities: no swelling, right leg pain was the entire leg knowledge of the right calf Skin: no diaphoresis Yes all other systems are reviewed and are negative [facility] Past Medical History Medical History Hyperlipidemia Anxiety HTN (hypertension) Social History Social History (Updated 07/14/23 @ 15:25 by Lisandra Padron DO) Alcohol intake: current Alcohol intake frequency: holidays/special occasions only Patient Tobacco Use Status: Tobacco use Unknown Advance Directives: No Advance Directives Information Provided: No Physical Exam ED Vital Signs: Vital Signs - 24 hr 08/22/24 15:15 Temperature 98.4 F Pulse Rate 72 Respiratory Rate 18 Blood Pressure 172/63 H Pulse Oximetry 95 Oxygen Delivery Method Room Air BMI result Body Mass Index 22.4 General: Well-appearing well-nourished in no signs of distress HEENT: Normocephalic atraumatic Neck: No signs of JVD, no masses no tenderness or lymphadenopathy Cardiovascular: Regular rate and rhythm Respiratory: Clear to auscultation bilaterally Abdomen: Soft nontender no masses Extremities: Normal pedal pulses no signs of edema he is not reproducible on exam Skin: Dry warm no rashes Back: No tenderness full ROM Course Course Course Narrative: This is a rapid medical exam performed by Valerie Angeles NP: Additional HPI, ROS, PE not included below will be deferred to primary provider. Patient is a 64-year-old female presenting with complaint of right lower leg pain pain, referred by PCP to rule out DVT. States last night pain was to entire right leg, this am just lower leg. Denies recent travel, has not smoke in long time. Denies chest pain, palpitations, dyspnea. Plan: Labs, U/S Medical Decision Making Medical Decision Making [facility] Narrative: ultrasound and labs are all unremarkable I did explain to the patient recommend Tylenol ibuprofen follow up with a doctor she is not diabetic I started her short course of prednisone as well as follow up with her doctor. Differential Diagnosis Differential Diagnoses: The differential diagnosis associated with the presentation includes DVT and certainly injury thigh injury sciatica herniated disc Lab Data [facility] Lab Attestation statement: I reviewed the patient's lab results. 08/22/24 15:13 08/22/24 15:13 Labs: Lab Results 08/22/24 Range/Units 15:13 WBC 8.5 (4.8-10.8) X10*3/uL RBC 4.68 (4.20-5.50) X10*6/uL Hgb 13.3 (12.0-16.0) g/dl Hct 39.9 (37.0-47.0) % MCV 85.3 (80.0-98.0) fL MCH 28.4 (27.0-33.0) pg MCHC 33.3 (31.0-35.0) g/dl RDW 13.2 (11.0-16.0) % Plt Count 269 (160-400) X10*3/uL MPV 9.2 L (9.4-12.3) fL Immature Gran % (Auto) 0.2 (0.0-0.4) % Neut % (Auto) 46.2 (45-73) % Lymph % (Auto) 44.2 H (20-40) % [place] % (Auto) 6.8 (2-11) % Eos % (Auto) 1.8 (0-4) % Baso % (Auto) 0.8 (0-2) % Lymph # (Auto) 3.8 (1.2-4.9) X10*3/uL [place] # (Auto) 0.6 (0.1-1.2) X10*3/uL Eos # (Auto) 0.2 (0.0-0.4) X10*3/uL Baso # (Auto) 0.1 (0.0-0.2) X10*3/uL Abs Immat Gran (auto) 0.02 (0.00-0.03) X10*3/uL Absolute Neuts (auto) 3.9 (2.0-8.3) x10*3/uL Absolute Nucleated RBC 0.000 (0.0-0.012) X10*3/uL Nucleated RBC % (auto) 0.0 (0.0-0.2) /100WBC PT 11.0 (10.9-12.4) SEC INR 1.0 (0.9-1.1) Sodium 142 (135-145) mmol/L Potassium 4.0 (3.3-5.1) mmol/L Chloride 105 (96-108) mmol/L Carbon Dioxide 26 (22-29) mmol/L Anion Gap 15 (12-20) BUN 16 (9-16) mg/dL Creatinine 0.75 (0.5-1.4) mg/dL Estim Creat Clear Calc 70.0 Estimated GFR > 60 Random Glucose 96 (60-115) mg/dL Calcium 9.4 (8.4-10.2) mg/dL Total Bilirubin 0.3 (0.0-1.0) mg/dL AST 22 (5-31) U/L ALT 26 (0-31) U/L Alkaline Phosphatase 127 H (39-117) U/L Total Protein 7.3 (6.5-8.0) g/dL Albumin 4.2 (3.5-5.0) g/dL Independent Interpretation I performed an independent interpretation of an: Ultrasound Radiology Impression Discussion of test interpretation with radiology: I have reviewed the radiologist's reading. Discharge Plan Discharge Clinical Impression: Acute pain of right lower extremity Patient Disposition: Home, Self-Care Instructions: Leg Cramps (ED), Leg Pain (ED) Additional Instructions: You were seen today in the emergency department for right leg pain. You had labs as well as an ultrasound done there was no blood clot and no lab abnormalities. This could be related to leg pain or even sciatica hernia has been in the past. Only started him short course of prednisone if you have worsening pain or any other concerns please return to the ER. Prescriptions: New acetaminophen [Tylenol] 325 mg tablet 325 mg PO QID PRN (Reason: pain) Qty: 90 0RF prednisone 20 mg tablet 60 mg PO DAILY 5 Days Qty: 15 0RF lidocaine 5 % adhesive patch,medicated 1 patch topical DAILY Qty: 30 0RF Rx Instructions: leave on most painful area for up to 12 hrs Stand Alone Forms: Work/School Release Print Language: Uz[place]
[2024-08-22 15:15] VITALS: BP 172/63; PULSE 72; RESP 18; TEMP 36.9; O2SAT 95; BMI 22.4
[2024-08-22 15:17] LABS: MANUAL DIFF FLAG NO
[2024-08-22 15:18] LABS: Basophils Absolute Auto 0.1 X10*3/uL (0.0-0.2); Basophils Percent Auto 0.8 % (0-2); Eosinophils Absolute Auto 0.2 X10*3/uL (0.0-0.4); Eosinophils Percent Auto 1.8 % (0-4); Hematocrit 39.9 % (37.0-47.0); Hemoglobin 13.3 g/dl (12.0-16.0); Imm Gran Abs Auto 0.02 X10*3/uL (0.00-0.03); Imm Gran Pct Auto 0.2 % (0.0-0.4); Lymphocytes Absolute Auto 3.8 X10*3/uL (1.2-4.9); Lymphocytes Percent Auto 44.2 % (20-40); Mean Corpuscular HGB Conc 33.3 g/dl (31.0-35.0); Mean Corpuscular Hemoglobin 28.4 pg (27.0-33.0); Mean Corpuscular Volume 85.3 fL (80.0-98.0); Mean Platelet Volume 9.2 fL (9.4-12.3); Monocytes Absolute Auto 0.6 X10*3/uL (0.1-1.2); Monocytes Percent Auto 6.8 % (2-11); Neutrophils Absolute Auto 3.9 x10*3/uL (2.0-8.3); Neutrophils Percent Auto 46.2 % (45-73); Platelet Count 269 X10*3/uL (160-400); Red Blood Count 4.68 X10*6/uL (4.20-5.50); Red Cell Distribution Width 13.2 % (11.0-16.0); White Blood Count 8.5 X10*3/uL (4.8-10.8)
[2024-08-22 16:09] LABS: Alanine Aminotransferase 26 U/L (0-31); Albumin Level 4.2 g/dL (3.5-5.0); Anion Gap 15 (12-20); Aspartate Amino Transferase 22 U/L (5-31); Bilirubin Total 0.3 mg/dL (0.0-1.0); Blood Urea Nitrogen 16 mg/dL (9-16); Calcium 9.4 mg/dL (8.4-10.2); Carbon Dioxide 26 mmol/L (22-29); Chloride 105 mmol/L (96-108); Estimated Glomerular Filt Rate > 60; Glucose Random 96 mg/dL (60-115); Sodium 142 mmol/L (135-145); Total Protein 7.3 g/dL (6.5-8.0)
[2024-08-22 16:40] LABS: Alkaline Phosphatase 127 U/L (39-117)
--- OUTSIDE RECORDS SUMMARY | 2024-08-22 17:15 | XMS_ITS | Data Portability ---
Author Organization [facility] Home Service Address [address] [place] [address] Assessment Encounter Date Assessment Date Assessment LastModified by Organization Details LastModified Time 12/22/2021 12/22/2021 The patient denies recent falls or recurrent falls. Denies instability, weakness, abnormal gait, or difficulties with movement. The patient wears correct, supportive shoes and is not otherwise severely visually impaired. The patient is full weight bearing and if using the assistance of a cane or walker feels supported and stable with the use of such devices. All medical conditions have been taken into account that may pose a risk for the patient for falls. Home alyssa, carpets and/or rugs do not pose a challenge for the patient. The patient has been educated about the use of vitamin D supplementation for bone health and prevention of hypotensive episodes that may increase risk for fall. All question and concerns were answered to the patient's satisfaction. [email or web address] Not available 12/22/2021 09:15:20 Plan of Treatment Reminders Order Date Submit Date Provider Last Modified By Organization Details Last Modified Time Details Appointments None recorded. Lab BMP, serum or plasma 2022 023 [facility] (Lab), [address] [place] [address], [address], 3 11:24:59 CMP, serum or plasma 2021 022 [facility], [address] [place] [address], [address], 2 13:00:03 CBC w/ auto diff 2021 022 [facility], [address] [place] [address], [place], [address], 13:00:03 lipid panel, blood 2021 [facility], [address] [place] [address], [address], 13:00:03 TSH + free T4, serum 2021 [facility], [address] [place] [address], [address], 13:00:03 vitamin D, 25-hydroxy , total, serum 2021 [facility], [address] [place] [address], [address], 09:25:[address] referral 2023 024 kanika Gomez MD, [address] , [facility], [place], [address], 4 08:12:47 gastroente rologist referral 2022 023 kanika Belcher MD, [address] [place], [address], 3 08:13:42 ophthalmol ogist referral 2021 022 [email or web address] 10 Tj Hatfield MD, [address] [facility] [address] [facility], [place], [address], 2 09:47:58 audiologis t referral 2021 022 [email or web address] 10 [facility], [address] [facility] [place], [address], 2 07:53:[address] referral 2021 022 SUSAN Herman MD, [address] [facility], [place], [address], 2 10:16:54 Procedures None recorded. Surgeries None recorded. Imaging CT, chest, w/o contrast 2023 024 [facility] (Imaging), [address] [place], [address], 4 14:15:00 XR, shoulder, 2 or more view 2022 023 [facility], [address] [place], [address], 3 08:41:23 US, echocardio gram 2022 023 [facility] (Imaging), [address] [place], [address], 3 08:38:41 exercise stress test 2022 023 [facility], [address] [place], [address], 3 08:41:53 Medication Orders metoprolol succinate ER 25 mg tablet,ext ended release 24 hr 2024 025 [facility], [address] [place], [address], 5 14:43:53 clonidine HCl 0.2 mg tablet 2024 025 [facility], [address] [place], [address], 5 14:43:53 atorvastat in 10 mg tablet 2024 025 [facility], [address] [place], [address], 5 14:43:55 metoprolol succinate ER 25 mg tablet,ext ended release 24 hr 2023 024 [facility], [facility] [place], [address], 4 10:29:19 amlodipine 5 mg tablet 2022 023 [facility], [facility] [place], [address], 3 14:58:55 triamcinol one acetonide 0.1 % topical cream 2021 022 [facility], [address] [place] [address], [address], 2 09:09:20 Patient TargetsNo targets recorded. Patient InstructionsNo instructions recorded. 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 Referring Physician: Leda Rizvi, Internal Medicine, Encounter Date: 12/22/2021 Distribution Technician Referral for Gastroesophageal reflux disease worsening GERD symptoms and ongoing diarrhea Referring Physician: Leda Rizvi, Internal Medicine, Encounter Date: 02/12/2023 Credit Rating Checker Referral for At ypical chest pain ongoing atypical chest pain and elevated BP Referring Physician: Leda Rizvi, Internal Medicine, Encounter Date: 07/23/2023 Results Created Date Observation Date Name Description Value Unit Range Abnormal Flag Note LastModifiedBy Organization Detail LastModifiedTime 02/01/20 22 01/29/2022 MAMMO , maria de torres, digit al, bilat eral No observ ation record ed. [facility] [address] [place], [address], 01/31/2022 12:03:14 02/10/20 23 02/09/2023 XR, chest , 2 view No observ ation record ed. [facility] (Medical Records) [address] [place], [address], 02/10/2023 06:38:55 03/10/20 23 03/10/2023 exerc ise stres s test No observ ation record ed. [facility] (Medical Records) [address] [place], [address], 03/10/2023 15:14:58 03/11/20 23 03/10/2023 US, echoc ardio gram No observ ation record ed. [email or web address] (Medical Records) [address] [facility], [address], 03/12/2023 15:47:52 03/11/20 23 03/09/2023 XR, shoul jemma, 2 or more view No observ ation record ed. [facility] (Medical Records) [address] [place], [address], 03/12/2023 15:32:40 07/14/19 24 07/14/2023 XR, chest , 2 view No observ ation record ed. [email or web address] (Medical Records) [address] [facility], [address], 07/14/2023 15:42:33 07/14/19 24 07/14/2023 CT, head + brain , w/o contr ast No observ ation record ed. [email or web address] (Medical Records) [address] [facility], [address], 07/14/2023 15:42:53 07/14/19 24 07/14/2023 CT, cervi kiki spine , w/o contr ast No observ ation record ed. [email or web address] [facility] (Medical Records) [address] [place], [address], 07/14/2023 15:43:31 07/14/19 24 07/14/2023 angio gram (PROC ) No observ ation record ed. [email or web address] [facility] (Medical Records) [address] [place], [address], 07/16/2023 08:31:34 11/15/19 24 11/12/2023 ankle brach ial index No observ ation record ed. [facility] [address], [place], [address], 11/15/2023 08:44:51 12/01/19 24 11/30/2023 myoca rdial perfu yared study w/ eject ion fract ion (PROC ) No observ ation record ed. [facility] [address], [place], [address], 12/01/2023 14:07:11 08/23/19 25 08/22/2024 imagi ng/di agnos tic resul t No observ ation record ed. [facility] (Medical Records) [address] [place], [address], 08/22/2024 16:14:54 08/23/19 25 08/22/2024 imagi ng/di agnos tic resul t No observ ation record ed. [facility] (Medical Records) [address] [place], [address], 08/22/2024 16:15:34 Result Notes None recorded. Problems Name Problem SNOMED Code Status Onset Date Resolution Date Notes Provider Name and Address Organization Details Recorded Time Hypercho lesterol emia 58070223 Active 2017 Not Available [facility] 1 11:56:26 Anxiety 56034847 Active 2019 per santiago manuel Not Available [facility] 1 11:56:26 Recurren t depressi on 115528921 Active 2019 per santiago manuel Not Available [facility] 11:56:26 Acid reflux 963417838 Active 2019 Not Available [facility] 11:56:26 Eczema 17070367 Active 2021 KENNY ROMERO [address] [place], [address], [facility] 2 16:42:27 Nasal congesti on 13561720 Active 2021 KENNY ROMERO [address] [place], [address], [facility] 2 11:33:33 Fever with chills 941294598 Active 2021 KENNY ROMERO [address] [place], [address], [facility] 2 11:33:46 Cough 56097972 Active 2021 KENNY ROMERO [address] [place], [address], [facility] 2 11:34:13 COVID-19 565718166 Active 2021 KENNY ROMERO [address] [place], [address], [facility] 2 11:56:32 Follicul itis 01665365 Active 2021 KENNY ROMERO [address] [place], [address], [facility] 2 09:07:31 Hearing loss 49598378 Active 2021 KENNY ROMERO [address] [place], [address], [facility] 2 09:13:31 Blurring of visual image 649997683 Active 2021 KENNY ROMERO [address] [place], [address], [facility] 2 09:15:31 Herpes labialis 4547637 Active 2022 on lip of mouth Mike Da Silva, DO [address] [place], [address], [facility] 3 14:51:23 Gastroes ophageal reflux disease 261646666 Active 2022 KENNY ROMERO [address] [place], [address], [facility] 3 13:37:48 Pain of left shoulder joint 51467867042 416222 Active 2022 KENNY ROMERO [address] [place], [address], [facility] 3 13:39:13 Atypical chest pain 654723583 Active 2022 KENNY ROMERO [address] [place], [address], [facility] 3 13:40:33 Hypokale charles 25753490 Active 2022 KENNY ROMERO [address] [place], [address], [facility] 3 13:43:30 Pericard ial effusion 380872967 Active 2022 KENNY ROMERO [address] [place], [address], [facility] 3 15:32:06 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 Procedures Surgical History Date Name Laterality Status Provider Name and Address Organization Details Recorded Time 10/11/19 18 Most Recent Mammogram completed Allegra Gaming NP, S [address] [place] [address], [address], [facility] 11/09/2017 15:05:50 04/12/19 13 Date of Last Pap Smear completed Allegra Gaming NP, S [address] [place] [address], [address], [facility] 11/09/2017 15:04:15 Dilation of cervical canal completed Allegra Gaming NP, S [address] [place] [address], [address], [facility] 11/09/2017 15:03:49 Imaging Results Imaging Date Name Status LastModified by Organization Details LastModified Time 01/29/2022 MAMMO, screening, digital, bilateral completed [facility] [address] [place], [address], 01/31/2022 12:03:14 02/09/2023 XR, chest, 2 view completed [facility] (Medical Records) [address] [place], [address], 02/10/2023 06:38:55 03/10/2023 exercise stress test completed [facility] (Medical Records) [address] [place], [address], 03/10/2023 15:14:58 03/10/2023 US, echocardiogram completed [email or web address] [place] [address] (Medical Records) [address] [place], [address], 03/12/2023 15:47:52 03/09/2023 XR, shoulder, 2 or more view completed [facility] (Medical Records) [address] [place], [address], 03/12/2023 15:32:40 07/14/2023 XR, chest, 2 view completed [address] (Medical Records) [address] [place], [address], 07/14/2023 15:42:33 07/14/2023 CT, head + brain, w/o contrast completed [address] (Medical Records) [address] [place], [address], 07/14/2023 15:42:53 07/14/2023 CT, cervical spine, w/o contrast completed [address] (Medical Records) [address] [place], [address], 07/14/2023 15:43:31 07/14/2023 angiogram (PROC) completed [address] (Medical Records) [address] [place], [address], 07/16/2023 08:31:34 11/12/2023 ankle brachial index completed [facility] [address], [place], [address], 11/15/2023 08:44:51 11/30/2023 myocardial perfusion study w/ ejection fraction (PROC) completed [facility] [address], [place], [address], 12/01/2023 14:07:11 08/22/2024 imaging/diagnosti c result active [facility] (Medical Records) [address] [place], [address], 08/22/2024 16:14:54 08/22/2024 imaging/diagnosti c result active [facility] (Medical Records) [address] [place], [address], 08/22/2024 16:15:34 Procedure Notes None recorded. Medical Equipment None Reported. Allergies No known drug allergies Medications Name Sig Start Date Stop Date Status Note LastModified by Organization Details LastModified Time atorvastati n 10 mg tablet TAKE ONE TABLET BY MOUTH EVERY DAY 2024 active Not Available Not Available Not Avai lable azithromyci n 250 mg tablet TAKE TWO TABLETS BY MOUTH ONE DOSE ON THE FIRST DAY, THEN TAKE ONE TABLET DAILY THEREAFTE R. 12/22 completed Not Available Not Available Not Available valacyclovi r 1 gram tablet TAKE ONE TABLET BY MOUTH EVERY 12 HOURS FOR 7 DAYS 08/12 completed Not Available Not Available Not Available clonazepam 0.5 mg tablet TAKE ONE TABLET BY MOUTH TWICE A DAY active Not Available Not Available No t Available amlodipine 5 mg tablet TAKE ONE TABLET BY MOUTH ONCE DAILY 03/26 completed Not Available Not Available Not Available ciprofloxac in 500 mg tablet 10/15 completed Not Available Not Available Not Available triamcinolo ne acetonide 0.1 % topical cream APPLY A THIN LAYER TO THE AFFECTED AREAS TOPICALLY TWO TIMES A DAY active Not Available Not Available No t Available lamotrigine 25 mg tablet TAKE THREE TABLETS BY MOUTH EVERY DAY active Not Available Not Available No t Available clonidine HCl 0.2 mg tablet Take 1 tablet every day by oral route as directed for 30 days. 2024 active Not Available Not Available Not Avai lable famotidine 20 mg tablet Take 1 tablet twice a day by oral route. active Not Available Not Available No t Available metronidazo le 0.75 % topical cream 10/15 completed Not Available Not Available Not Available losartan 25 mg tablet TAKE ONE TABLET BY MOUTH TWICE A DAY - NEED APPOINTME NT FOR REFILLS active Not Available Not Available No t Available betamethaso ne dipropionat e 0.05 % topical cream APPLY A THIN LAYER TO THE AFFECTED AREA(S) ONCE DAILY active Not Available Not Available No t Available omeprazole 20 mg capsule,del ayed release TAKE ONE CAPSULE BY MOUTH EVERY DAY active Not Available Not Available No t Available codeine 10 mg-guaifene sin 100 mg/5 mL oral liquid TAKE 10ML BY MOUTH EVERY 4 HOURS FOR 7 DAYS 12/22 completed Not Available Not Available Not Available furosemide 20 mg tablet TAKE ONE TABLET BY MOUTH ONCE DAILY FOR 14 DAYS 08/12 completed Not Available Not Available Not Available metoprolol succinate ER 25 mg tablet,exte nded release 24 hr Take 1 tablet(s) every day by oral route as directed for 30 days. active Not Available Not Available No t Available ibuprofen 600 mg tablet TAKE ONE TABLET BY MOUTH EVERY 6 HOURS NEEDED FOR LOWER BACK PAIN 10/21 completed Not Available Not Available Not Available estradiol 0.01% (0.1 mg/gram) vaginal cream USE 1 GRAM VAGINALLY 3 TIMES A WEEK 10/21 completed Not Available Not Available Not Available sertraline 50 mg tablet TAKE 1.5 TABLETS BY MOUTH ONCE DAILY active Not Available Not Available No t Available naproxen 500 mg tablet 11/09 completed Not Available Not Available Not Available mometasone 0.1 % topical cream APPLY SMALL AMOUNT TO THE AFFECTED AREA ONCE PER DAY 10/21 completed Not Available Not Available Not Available amoxicillin 875 mg-potassiu m clavulanate 125 mg tablet TAKE 1 TABLET BY MOUTH TWICE DAILY 12/22 completed Not Available Not Available Not Available cholestyram ine (with sugar) 4 gram oral powder Take 1 scoop twice a day by oral route. 05/23 completed Not Available Not Available Not Available nitrofurant oin monohydrate /macrocryst als 100 mg capsule TAKE 1 CAPSULE BY MOUTH TWICE DAILY 12/22 completed Not Available Not Available Not Available sertraline 10/15 completed Not Available Not Available Not Available atorvastati n 10/15 completed Not Available Not Available Not Available omeprazole 10/15 completed Not Available Not Available Not Available losartan 10/15 completed Not Available Not Available Not Available Lamictal 10/15 completed Not Available Not Available Not Available clonazepam 10/15 completed Not Available Not Available Not Available multivitami n 1 PO QD active Not Available Not Available Not Available Finacea active Not Available Not Avail able Not Available diclofenac 1 % topical gel APPLY 2 GRAMS TOPICALLY TO AFFECTED AREA FOUR TIMES A DAY 02/12 completed Not Available Not Available Not Available Finacea 15 % topical foam APPLY SMALL AMOUNT ONTO THE AFFECTED AREA TWICE PER DAY 12/22 completed Not Available Not Available Not Available Narcan 4 mg/actuatio n nasal spray 10/15 completed Not Available Not Available Not Available Afluria (PF) 45 mcg(15 mcg x 3)/0.5 mL intramuscul ar syringe 10/15 completed Not Available Not Available Not Available Flucelvax Quad (PF) 60 mcg (15 mcg x 4)/0.5 mL IM syringe 10/21 completed Not Available Not Available Not Available Flucelvax Quad (PF) 60 mcg (15 mcg x 4)/0.5 mL IM syringe 10/21 completed Not Available Not Available Not Available Afluria Qd 2019- (36 mos up)(PF)60 mcg (15 mcg x4)/0.5 mL IM syringe ADM 0.5ML IM UTD 10/21 completed Not Available Not Available Not Available Paxlovid 300 mg (150 mg x 2)-100 mg tablets in a dose pack TAKE 3 TABLETS BY MOUTH TWICE DAILY FOR 5 DAYS 11/17 completed Not Available Not Available Not Available Vitals Date Recorded Body height Body mass index (BMI) Body weight Oxygen saturation Oxygen saturation in Arterial blood by Pulse oximetry Heart rate Systolic blood pressure Diastolic blood pressure Provider Name and Address Organization Details Last Updated DateTime 2 160.02 cm 23.3 kg/m2 24132.1 2 g 98 % 98 % 95 /min 130 mm[Hg] 70 mm[Hg] Jia Corea [facility] 2 08:59:18 Date Recorded Body height Body mass index (BMI) Body weight Heart rate Oxygen saturation Oxygen saturation in Arterial blood by Pulse oximetry Systolic blood pressure Diastolic blood pressure Provider Name and Address Organization Details Last Updated DateTime 3 160.02 cm 23.2 kg/m2 96706.6 g 113 /min 92 % 92 % 144 mm[Hg] 80 mm[Hg] Puja Kilgore [facility] 3 13:34:57 Date Recorded Body height Body mass index (BMI) Body weight Heart rate Oxygen saturation Oxygen saturation in Arterial blood by Pulse oximetry Systolic blood pressure Diastolic blood pressure Provider Name and Address Organization Details Last Updated DateTime 4 160.02 cm 23 kg/m2 58336.0 1 g 74 /min 98 % 98 % 148 mm[Hg] 84 mm[Hg] Satinder Hanover [facility] 4 10:11:52 Date Recorded Body height Body mass index (BMI) Body weight Heart rate Oxygen saturation Oxygen saturation in Arterial blood by Pulse oximetry Systolic blood pressure Diastolic blood pressure Provider Name and Address Organization Details Last Updated DateTime 4 160.02 cm 23.9 kg/m2 24443.6 9 g 95 /min 96 % 96 % 142 mm[Hg] 82 mm[Hg] Vanessa Price [facility] 4 09:27:45 Date Recorded Body height Body mass index (BMI) Body weight Heart rate Oxygen saturation Oxygen saturation in Arterial blood by Pulse oximetry Systolic blood pressure Diastolic blood pressure Provider Name and Address Organization Details Last Updated DateTime 5 160.02 cm 24.8 kg/m2 84914.9 3 g 66 /min 98 % 98 % 132 mm[Hg] 76 mm[Hg] KENNY ROMERO [address] [place] [address], [phone] 5 14:10:21 Social History Question Answer Notes LastModified by Organizat ion Details LastModified Time Tobacco Smoking Status Former Smoker 20 years Not Available [employer] 02/13/2020 03:36:23 What Was The Date Of Your Most Recent Tobacco Screening? 06/13/2024 [email or web address] Information not available 06/13/2024 Sex: Unknown Functional Status Question Answer Note LastModified by Organization D etails LastModified Time Do you or have you ever used any other forms of tobacco or nicotine? No [email or web address] Information not available 02/12/2023 Mental Status None recorded. Family History Nothing Reported. Medical History Condition Response Coronary Artery Disease N Gout N Kidney Stones N Blood Diseases N Hyperthyroidism N Blood Transfusion N COPD N Depression Y Anxiety Disorder Y Muscle, Joint, or Bone Problems N Obesity N Arthritis N Polyps N Mental Disorder N Cancer N Varicosities N Stroke N Headaches N Fibromyalgia N Kidney Disease N Heart Problems N Hospitalizations N Eating Disorder N Skin Problems Y MRSA exposure N Constipation N Asthma N Hepatitis N Pulmonary Embolism N Chicken Pox Autism Spectrum Disorder (ASD) N Thrombophilias N Breast Cancer N Lung Disease N Hypothyroidism N Defects or Inherited Disease N Difficulty Swallowing N Anesthesia Complications N Meniere's disease N Bladder or Kidney Problems N High Cholesterol Y Liver Disease N Allergies/Hayfever N Thyroid Problems N GI Problems Y Anemia N Mental Illness Y Diabetes N Ovarian Cancer N Seizures/Epilepsy N Congestive Heart Failure (CHF) N Eczema Y Abuse/Domestic Violence N Diverticulitis N Reflux/GERD Y Heart Disease N Hypertension Y Osteoporosis N Gynecological History Statement/Question Response Abnormal Pap N STIs/STDs N HPV Vaccine N Current Control Method Menopause Most Recent Mammogram 10/10/2017 Age at Menarche 14 Age at First Child 21 If Post Menopausal, Age at Menopause 54 Sexually Active? Y Date of Last Pap Smear 04/12/2012 Sexual Problems? Y Obstetrics History GPAL:G 0 P 0 0 0 0 Immunizations Vaccine Type Date Status Note Provider Nam e and Address Organization Details Recorded Time Influenza, split virus, quadrivalent, preservative 8 completed Xochilt loyola [facility] 01/12/2018 08:34:42 Influenza, split virus, quadrivalent, preservative 1 completed Jia loyola [facility] 12/22/2021 08:20:06 COVID-19, mRNA, LNP-S, PF, 30 mcg/0.3 mL dose 1 completed Jia loyola [facility] 12/22/2021 08:20:24 Influenza, split virus, quadrivalent, preservative 0 completed Shameka loyola [facility] 01/31/2020 13:51:35 COVID-19, mRNA, LNP-S, PF, 30 mcg/0.3 mL dose 1 completed Dhara loyola [facility] 05/03/2020 11:25:03 COVID-19, mRNA, LNP-S, PF, 30 mcg/0.3 mL dose 1 vasquez loyola [facility] 05/24/2020 12:02:38 Past Encounters Encounter ID Performer Location Encounter Start Date Encounter Closed Date Diagnosis/Indication Diagnosis SNOMED-CT Code Diagnosis ICD10 Code Diagnosis Note [id number] Mike Da Silva [facility] [address] [facility],[place] [address] 10/08/2017 14:25:08 10/08/2017 15:56:51 Diarrhea 92652405 R19.7 Essential hypertension 43703963 I10 stable Gastroesop hageal reflux disease 159043814 K21.9 [id number] Mike Da Silva [facility] [address] [facility],[place] [address] 10/15/2017 14:00:12 10/15/2017 16:16:30 Impaired fasting glycemia 922819592 R73.01 A1C 5.4 follow Diarrhea 21030294 R19.7 Screening procedure 2012 5006 Z13.9 [id number] Mike Da Silva [facility] [address],[place] [address] 11/09/2017 14:44:19 11/09/2017 16:23:45 Adult health examination 257017778 Z00.01 Diarrhea 51794406 R19.7 Hypercholesterolemia 136 14667 E78.00 Right lowe r quadrant pain 499897794 R10.31 Essential hypertension 40001929 I10 stable Gynecologi c examination 96220891 Z01.419 [id number] Mike Da Silva [facility] [address],[place] [address] 12/06/2017 11:31:29 12/06/2017 13:32:39 Hypercholesterolemia 93508898 E78.00 Did not complete yet Essential hypertension 65439047 I10 stable [id number] Mike Da Silva [facility] [address],[place] [address] 05/23/2019 09:17:53 05/23/2019 10:14:02 Acid reflux 838022828 K21.9 Anxiety 17736352 F41.9 Essential hypertension 22607964 I10 stable Hypercholesterolemia 136 37293 E78.00 Recurrent depression 191 362213 F33.9 Dyspareunia 77198463 N94 .10 will try estrace risks/bene fits discussed advised to start with 3x/week, but may taper to once or twice per week if sx relief acheived at lower doses [id number] Mike Da Silva [facility] [address],[place] [address] 12/19/2019 14:27:10 12/19/2019 14:51:32 Loss of hair 899516487 L65.9 will check a few labs and see if it's related to that could just be hereditary liked we discussed or hormone related as well also has been doing keto diet so could also be diet related Rosacea 697625191 L71.9 needs refills, doesn't want to go see derm right now due to pandemic [id number] Mike Da Silva [facility] [address],[place] [address] 04/01/2020 11:18:38 04/01/2020 11:56:02 Cough 87752349 R05 will give medication for cough relief at night as it is disrupting her sleep Anterior rhinorrhea 2772 26769 J34.89 will retest her for COVID as it may have been a false negative a quiet a few of her co workers have come back positive Fever 024939385 R50.9 resolved [id number] Mike Da Silva [facility] Internal [facility] [address],[place] [address] 10/21/2020 10:28:18 10/21/2020 11:08:50 Recurrent depression 327185566 F33.9 stable Osteoarthritis 624194088 M19.90 discussed optionswil l try topical for now Anxiety 39707807 F41.9 stable Essential hypertension 38571998 I10 BP fine today Hyperlipidemia 37838504 E78.5 [place] [id number] Mike Da Silva [facility] [address],[place] [address] 08/20/2021 09:54:27 08/20/2021 12:15:41 Suspected COVID-19 813042623 Z20.822 will get PCR testwill also test for the flu at Nasal congestion 7179831 0 R09.81 can use OTC decongesta nts, do not use sudafed due to HTN Fever with chills 016133 006 R50.81 continue with APAP and ibu for treatment Cough 68533679 R05.1 will start on cough suppressan t and abx for worsening respirator y symptoms [id number] [facility] [address],[place] [address] 12/22/2021 08:50:36 12/22/2021 09:27:34 Recurrent depression 288273986 F33.9 stable Active or passive immunization 545907690 Z23 advised 12/22/21 Adult [facility] th examination 287064986 Z00.00 BP is excellent Folliculitis 41492802 L7 3.8 will trial a two week period Hearing loss 68705545 H9 0.3 will fu with referral Blurring o f visual image 408249340 H53.8 will fu with eye doctor Seen in necology clinic 013599168 Z76.89 will fu with [facility] gynecologi [id number] Mike Da Silva [facility] [address],[place] [address] 02/12/2023 13:28:26 02/12/2023 14:17:22 Recurrent depression 169174929 F33.9 stable Gastroesop hageal reflux disease 915397709 K21.9 agreed to f/u with GI for endoscope and colonoscop y Pain of le ft shoulder joint 0982667914 3554053 M25.512 mild intermitte nt painprobab ly OA, unrelated to the chest pain Atypical chest pain 1025 83758 R07.89 will set up with Echo and Stress test for recurrent Essential hypertension 77096343 I10 agreed to switch to amlodipine Hypokalemia 02495001 E87 .6 will set up with recheck K level [id number] [facility] [address],[place] [address] 07/23/2023 09:55:49 07/23/2023 13:54:05 Essential hypertension 53333779 I10 agreed to switch out medication to metoprolol , see if that also helps with pain and palpitatio ns Atypical chest pain 1025 46793 R07.89 fu with cardio 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 will set up with CT to check area specifical ly as it was an incidental finding on echo [id number] Mike Da Silva [facility] [address],[place] [address] 08/13/2023 09:16:18 08/13/2023 16:06:55 Atypical chest pain 378266271 R07.89 fu with cardio Essential hypertension 58084327 I10 stable 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 has fu with ENT coming up Depression screening 171 386601 Z13.31 stable [id number] Mike Da Silva [facility] [address],[place] [address] 06/13/2024 13:59:36 06/13/2024 16:54:53 Hyperlipidemia 76708854 E78.41 will recheck BW Essential hypertension 73413429 I10 stable Anxiety 77683239 F41.1 stable Health Concerns Section Related Observation LastModified by Organization Detai ls LastModified Time None Recorded Concern Status LastModified by Organization Details LastModified Time None Recorded Advance Directives Directive None Recorded Payers Encounter Date Sequence Insurance Name Policy Number Policy Metcalf Covered Member ID Metcalf Member ID Guarantor Name 12/22/2021 1 [facility] [place] [place] [id number] Paulina Eric Nitish [id number] Paulina C Nitish 02/12/2023 1 [facility] [place] [place] [id number] Paulina C Nitish [id number] Paulina C Nitish 07/23/2023 1 [facility] Paulina C Nitish [id number] Paulina C Nitish 08/13/2023 1 [facility] Paulina C Nitish [id number] Paulina C Nitish 06/13/2024 1 [facility] Paulina C Nitish [id number] Paulina C Nitish Notes Date Note Type Note Provider Name a nd Address Organization Details Recorded Time text/html Annual WellnessReported bypatient.Diet and Nutrition:healthy diet; discussed vitamin and supplement use; discussed portion control; discussed maintaining calcium balance; discussed diet improvement; advised to try coffee Fracture Risk:no history of fractures; no recent explained fracture; no sudden unexplained fractures; no previous musculoskeletal injuries; no recent falls Physical Activity:exercises on a regular basis; recent increase in physical activity; good physical condition Additional Lifestyle Factors:no tobacco use; drinks alcohol (mild-moderate) (occasionally) Depression Risk:never feels sad, empty, or tearful; no loss of interest in activities; no significant changes in weight; no sleep disturbances or insomnia; no agitation; no loss of energy; no feelings of worthlessness or guilt; no thoughts of suicide; no history of depression; no history of mood disorders Hearing:loss of hearing: in both ears Vision:worsening discussed getting the Shingles Vaccine, discussed side effects KENNY ROMERO [address] [place], [address], [facility] 12/22/2021 09:25:46 3 text/html ER fu the patient reports she has been having atypical chest pain for awhile the patient reports she went to the ER recently the patient reports that she had low potassium, given a pillthe patient is doing okay otherwise the patient was told to fu with cardio, will hold that per patient and do a work up for the patientalso same time rule out GERD as a contributor to her symptomscould be that, worsening symptoms, will send to gastro not taking losartan, thinks it gives her side effectswill set up with amlodipine KENNY ROMERO [address] [place], [address], [facility] Medicine 02/12/2023 13:47:36 4 text/html ER f/u still having issues with BPthe patient is currently on clonidine, have tried amlodipine, losartan, allergy to lisinoprilwill switch out to metoprolol instead, may get better benefit with it for the atypical chest pain she gets agreed to CT to check incidental finding of the mass/enlargement of her trachea caught on Echo will also have her evaluated by cardio to r/o any serious cardiac problems not otherwise seen on work up otherwise will fu in three weeks to check BP KENNY ROMERO [address] [place], [address], [facility] Medicine 07/23/2023 10:35:07 4 text/html f/u appt the patient reports she is having fluctuating BPthe patient reports that she is always having at least a 10 point difference between the L and R, L usually higherdiscussed possibility of subclavian steel?recheck in office today; L arm was 132/80 and R arm was 136/83 L arm the patient has been taking her BP at home, fluctuates from 120-160s/80, usually between 120 to 130 the patient is tolerating the metoprolol wellhas a fu with cardio in October will continue on current dose for metoprololthe patient denies any side effects on KENNY ROMERO [address] [place], [address], [facility] Medicine 08/13/2023 09:47:56 5 text/html f/u BP check HTN: today in the office the patient BP is 132/76 L arm sitting the patient is doing well on the BP medication with no side effects and no adjustment of their medications needed today at the appointment well-controlled on medication denies chest pain, sob, ankle swelling, orthopnea, palpitations HLD: stable anxiety/depression: sees therapist/psych, gets meds from them KENNY ROMERO [address] [place], [address], [facility] Medicine 06/13/2024 14:45:28 OBGyn Episode No OBEpisode recorded.
[2024-08-22 18:33] VITALS: BP 149/74; PULSE 76; RESP 16; TEMP 36.6; O2SAT 94
[2024-08-22] MEDS: predniSONE 20 MG TABLET 60 MG PO (18:46)
[2024-08-22] MEDS: Acetaminophen 325 MG TABLET 975 MG PO (18:46)
[2024-08-22 18:47] VITALS: BP 149/74; PULSE 76; RESP 16; TEMP 36.6; O2SAT 94
== END 2024-08-22 18:47 | disposition home or self-care (01) ==
PROVIDERS: Registered Nurse Emergency; Emergency Provider Student in an Organized Health Care Education/Training Program; PCP Internal Medicine
DX: M79.661 Pain in right lower leg (principal); I10 Essential (primary) hypertension; E78.5 Hyperlipidemia, unspecified; Z79.899 Other long term (current) drug therapy
CPT/HCPCS: 36415; 80053; 85025; 85610; 93971; 99283; 99284

== ENCOUNTER → 2024-08-22 15:02 | Outpatient (BNV) | payer OTHER, SELFPAY | PROVIDERS: PCP Internal Medicine; Visit Provider Radiology Diagnostic Radiology | DX: M79.661 Pain in right lower leg (principal) | CPT/HCPCS: 93971 ==

== ENCOUNTER 2024-08-28 10:48 | Emergency (ER) | payer OTHER, SELFPAY ==
[2024-08-28 11:20] VITALS: BP 184/82; PULSE 65; RESP 16; TEMP 36.3; O2SAT 95; BMI 24.1
--- NOTE | 2024-08-28 14:52 | ED.GENADULT ---
HPI - General Adult General Chief complaint: Extremity Injury, Lower Stated complaint: high bp Time Seen by Provider: 08/28/24 17:48 Source: patient and old records reviewed Mode of arrival: ambulatory Limitations: no limitations History of Present Illness ED Provider: LINDSAY HARTMAN narrative: 64 yo female with PMH of back issues, HTN here with R leg lateral shah pain at rest and with walking - no known trauma, no pain in R foot, pain not in back. No numbness, weakness, blue foot. She has not smoked in many decades. No recent travel. Just had normal DVT study 08/22 here. She is taking prednisone and lidocaine but states at work standing and walking it still hurts and she cannot do it. She describes it as a burning pain. She cannot get into the PCP. She notes she had this on her L leg before and it was her back. complaint: leg pain Onset (ago): week(s) Location: right and lower extremity Radiation: non-radiation Severity: mild Quality: burning Pain Consistency: constant Relieving factors: none Exacerbating factors: movement Associated symptoms: denies other symptoms Treatments prior to arrival: other Related Data Previous Rx's ?Medication ?Instructions ?Recorded acetaminophen 325 mg tablet 325 mg PO QID PRN pain #90 tabs 08/22/24 (Tylenol) lidocaine 5 % topical patch 1 patch topical DAILY back pain 08/22/24 #30 ea prednisone 20 mg tablet 60 mg (3 x 20 mg) PO DAILY Asthma 08/22/24 5 days #15 tabs gabapentin 100 mg capsule 100 mg PO BID #60 caps 08/28/24 Allergies Allergy/AdvReac Type Severity Reaction Status Date / Time No Known Allergies Allergy Verified 08/28/24 11:21 Review of Systems Review of Systems: Constitutional : No Fever, No Chills ENT/Mouth : No Ear Pain, No Hoarseness, No sore throat Eyes: No Eye Pain, No Swelling, No Redness, No Foreign Body Cardiovascular : No Chest Pain, No SOB Respiratory : No Cough, No Dyspnea Gastrointestinal : No Nausea, No Vomiting, No Diarrhea, No abdominal Pain Genitourinary : No Dysuria, No Hematuria Musculoskeletal : positive leg pain, No Myalgias, No Joint Swelling Skin : No Skin lacerations, No rash Neuro : No Weakness, No Numbness, No Loss of Consciousness, No Dizziness, No Headache All other systems reviewed and are negative PMFSH Past Medical History Attestation statement: The following information was validated with the patient. Source: old records reviewed Medical History Hyperlipidemia Anxiety HTN (hypertension) Social History Social History Alcohol intake: current Alcohol intake frequency: holidays/special occasions only Alcohol type: wine Patient Tobacco Use Status: Tobacco use Unknown Smoked in Last 30 Days: No Advance Directives: No Advance Directives Information Provided: No Physical Exam ED Vital Signs: Vital Signs - 24 hr 08/28/24 11:20 08/28/24 17:12 Temperature 97.3 F 98.3 F Pulse Rate 65 75 Respiratory Rate 16 16 Blood Pressure 184/82 H 185/94 H Pulse Oximetry 95 96 Oxygen Delivery Method Room Air Room Air BMI result Body Mass Index 24.1 Appearance: Alert. Oriented X3. No acute distress. Eyes: Pupils equal, round and reactive to light. ENT: Pharynx normal. Neck: Normal inspection. Neck supple. CVS: Normal heart rate and rhythm. Pulses normal. Respiratory: No respiratory distress. Breath sounds normal. Abdomen: Soft and nontender. Skin: Skin warm and dry. Normal skin color. Normal skin turgor. Extremities: No lower extremity edema. No calf ttp achilles test intact BCR in all digits, foot is warm to touch and normal color, compartments are soft and compressible, 2+ DP and PT pulse to palpation, no rash, no pain with compression of compartments, SILT intact, normal fem pulse as well Neuro: Oriented X 3. No motor deficit. No sensory deficit. CN2-12 intact Course Course Course Narrative: RME performed by Martha Odom PA-C. Patient is a 64 year old assigned female at presenting to the emergency department with right lower leg pain. Patient states she has been having right lower leg pain that is worse with walking. Patient states that she is a former smoker but not current. Patient states that she had a cardiac work up last year including a lower leg study that was negative for any acute process. Detailed physical exam and review of systems are deferred to the machine preservative filler. Labs ordered. Patient placed back in the waiting room pending room availability and results. Medical Decision Making Medical Decision Making MDM Narrative: 64 yo female with PMH of back issues, HTN here with c/o R lateral leg pain but on exam no infection and NV intact and compartments are soft. I do not expect claudication it is lateral shah pain not foot pain and she has bounding pulses seems atypical. Will refer her to PCP and start on gabapentin with work note. Differential Diagnosis Differential Diagnoses: The differential diagnosis associated with the presentation includes neuropathy, doubt DVT, no signs of infection, bounding pulses and feet warm pain on lateral aspect of shah not foot pain doubt ischemia or claudication Admission/Observation Consideration of admission/observation: Escalation of care including admission/observation considered reassuring work up stable for DC Lab Data [facility] Lab Attestation statement: I reviewed the patient's lab results. wbc count from prednisone 08/28/24 15:19 08/28/24 15:19 Labs: Lab Results 08/28/24 Range/Units 15:19 WBC 12.4 H (4.8-10.8) X10*3/uL RBC 5.22 (4.20-5.50) X10*6/uL Hgb 14.8 (12.0-16.0) g/dl Hct 44.8 (37.0-47.0) % MCV 85.8 (80.0-98.0) fL MCH 28.4 (27.0-33.0) pg MCHC 33.0 (31.0-35.0) g/dl RDW 13.7 (11.0-16.0) % Plt Count 350 D (160-400) X10*3/uL MPV 9.2 L (9.4-12.3) fL Immature Gran % (Auto) 2.3 H (0.0-0.4) % Neut % (Auto) 56.0 (45-73) % Lymph % (Auto) 34.6 (20-40) % Morrill % (Auto) 6.8 (2-11) % Eos % (Auto) 0.1 (0-4) % Baso % (Auto) 0.2 (0-2) % Lymph # (Auto) 4.3 (1.2-4.9) X10*3/uL Morrill # (Auto) 0.9 (0.1-1.2) X10*3/uL Eos # (Auto) 0.0 (0.0-0.4) X10*3/uL Baso # (Auto) 0.0 (0.0-0.2) X10*3/uL Abs Immat Gran (auto) 0.28 H (0.00-0.03) X10*3/uL Absolute Neuts (auto) 7.0 (2.0-8.3) x10*3/uL Absolute Nucleated RBC 0.000 (0.0-0.012) X10*3/uL Nucleated RBC % (auto) 0.0 (0.0-0.2) /100WBC Sodium 141 (135-145) mmol/L Potassium 4.2 (3.3-5.1) mmol/L Chloride 105 (96-108) mmol/L Carbon Dioxide 27 (22-29) mmol/L Anion Gap 13 (12-20) BUN 17 H (9-16) mg/dL Creatinine 0.73 (0.5-1.4) mg/dL Estim Creat Clear Calc 66.0 Estimated GFR > 60 Random Glucose 100 (60-115) mg/dL Calcium 9.2 (8.4-10.2) mg/dL Magnesium 2.3 (1.6-2.6) mg/dL Total Bilirubin 0.2 (0.0-1.0) mg/dL AST 17 (5-31) U/L ALT 22 (0-31) U/L Alkaline Phosphatase 98 (39-117) U/L Total Protein 7.3 (6.5-8.0) g/dL Albumin 4.3 (3.5-5.0) g/dL External Record Review External record reviewed: Outpatient record Prescription Management I considered prescription management with: Pain Medication Discharge Plan Discharge Clinical Impression: Leg pain, right Patient Disposition: Home, Self-Care Instructions: Leg Pain (ED) Additional Instructions: please follow up with your doctor rest and keep leg elevated return for redness, swelling, cold blue toe, numbness, weakness, loss of control of bowel or bladder Prescriptions: New gabapentin 100 mg capsule 100 mg PO BID Qty: 60 0RF No Action acetaminophen [Tylenol] 325 mg tablet 325 mg PO QID PRN (Reason: pain) Qty: 90 0RF prednisone 20 mg tablet 60 mg PO DAILY 5 Days Qty: 15 0RF lidocaine 5 % adhesive patch,medicated 1 patch topical DAILY Qty: 30 0RF Rx Instructions: leave on most painful area for up to 12 hrs Stand Alone Forms: Work/School Release Print Language: [place]
[2024-08-28 15:32] LABS: MANUAL DIFF FLAG NO
[2024-08-28 15:34] LABS: Basophils Percent Auto 0.2 % (0-2); Eosinophils Percent Auto 0.1 % (0-4); Hematocrit 44.8 % (37.0-47.0); Hemoglobin 14.8 g/dl (12.0-16.0); Imm Gran Abs Auto 0.28 X10*3/uL (0.00-0.03); Imm Gran Pct Auto 2.3 % (0.0-0.4); Lymphocytes Absolute Auto 4.3 X10*3/uL (1.2-4.9); Lymphocytes Percent Auto 34.6 % (20-40); Mean Corpuscular Hemoglobin 28.4 pg (27.0-33.0); Mean Corpuscular Volume 85.8 fL (80.0-98.0); Mean Platelet Volume 9.2 fL (9.4-12.3); Monocytes Absolute Auto 0.9 X10*3/uL (0.1-1.2); Monocytes Percent Auto 6.8 % (2-11); Platelet Count 350 X10*3/uL (160-400); Red Blood Count 5.22 X10*6/uL (4.20-5.50); Red Cell Distribution Width 13.7 % (11.0-16.0); White Blood Count 12.4 X10*3/uL (4.8-10.8)
[2024-08-28 15:56] LABS: Alanine Aminotransferase 22 U/L (0-31); Albumin Level 4.3 g/dL (3.5-5.0); Anion Gap 13 (12-20); Aspartate Amino Transferase 17 U/L (5-31); Bilirubin Total 0.2 mg/dL (0.0-1.0); Blood Urea Nitrogen 17 mg/dL (9-16); Calcium 9.2 mg/dL (8.4-10.2); Carbon Dioxide 27 mmol/L (22-29); Chloride 105 mmol/L (96-108); Estimated Glomerular Filt Rate > 60; Glucose Random 100 mg/dL (60-115); Magnesium 2.3 mg/dL (1.6-2.6); Potassium 4.2 mmol/L (3.3-5.1); Sodium 141 mmol/L (135-145); Total Protein 7.3 g/dL (6.5-8.0)
[2024-08-28 16:26] LABS: Alkaline Phosphatase 98 U/L (39-117)
--- OUTSIDE RECORDS SUMMARY | 2024-08-28 17:11 | XMS_ITS | Data Portability ---
Author Organization [facility] Home Service Address [address] [place] [address] Assessment Encounter Date Assessment Date Assessment LastModified [...] Lab BMP, serum or plasma 2022 023 [facility] (Lab), [address] [place] [address], [address], 3 11:24:59 CMP, serum or plasma 2021 022 [facility], [address] [place] [address], [address], 2 13:00:03 CBC w/ auto diff 2021 022 [facility], [address] [place] [address], [place], [address], 13:00:03 lipid panel, blood 2021 [facility], [address] [place] [address], [address], 13:00:03 TSH + free T4, serum 2021 [facility], [address] [place] [address], [address], 13:00:03 vitamin D, 25-hydroxy , total, serum 2021 [facility], [address] [place] [address], [address], 09:25:[address] referral 2023 024 kanika Gomez MD, [address] , [facility], [place], [address], 4 08:12:47 gastroente rologist referral 2022 023 kanika Belcher MD, [address] [place], [address], 3 08:13:42 ophthalmol ogist referral 2021 022 [email or web address] 10 Tj Hatfield MD, [address] [facility] [address] [facility], [place], [address], 2 09:47:58 audiologis t referral 2021 022 [email or web address] 10 [facility], [address] [facility] [place], [address], 2 07:53:[address] referral 2021 022 SUSAN Herman MD, 10 [facility], [place], [address], 2 10:16:54 Procedures None recorded. Surgeries None recorded. Imaging CT, chest, w/o contrast 2023 024 [facility] (Imaging), [address] [place], [address], 4 14:15:00 XR, shoulder, 2 or more view 2022 023 [facility] Central Scheduling, [address] [place], [address], 3 08:41:23 US, echocardio gram 2022 023 [facility] (Imaging), [address] [place], [address], 3 08:38:41 exercise stress test 2022 023 [facility] Central Scheduling, [address] [place], [address], 3 08:41:53 Medication Orders metoprolol succinate ER 25 mg tablet,ext ended release 24 hr 2024 025 [facility], [address] [place], [address], 5 14:43:53 clonidine HCl 0.2 mg tablet 2024 025 [facility], [address] [place], [address], 5 14:43:53 atorvastat in 10 mg tablet 2024 025 [facility], [address] [place], [address], 5 14:43:55 metoprolol succinate ER 25 mg tablet,ext ended release 24 hr 2023 024 [facility], [facility] [place], [address], 4 10:29:19 amlodipine 5 mg tablet 2022 023 [facility], [facility] [place], [address], 3 14:58:55 triamcinol one acetonide 0.1 % topical cream 2021 022 [facility], [address] [place] [address], [address], 2 09:09:20 Patient TargetsNo targets recorded. Patient InstructionsNo instructions recorded. 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 Gun Operator Referral for Se en in gynecology clinic needs new application development consultant, with routine pap Referring Physician: Leda Rizvi, Internal Medicine, Encounter Date: 12/22/2021 Feed Mixer Referral for Gastroesophageal reflux disease worsening GERD symptoms and ongoing diarrhea Referring Physician: Leda Rizvi, Internal Medicine, Encounter Date: 02/12/2023 Housekeeping Staff Referral for At ypical chest pain ongoing atypical chest pain and elevated BP Referring Physician: Leda Rizvi, Internal Medicine, Encounter Date: 07/23/2023 Results Created Date Observation Date Name Description Value Unit Range Abnormal Flag Note LastModifiedBy Organization Detail LastModifiedTime 02/01/20 22 01/29/2022 MAMMO , maria de torres, digit al, bilat eral No observ ation record ed. [facility] Central Scheduling [address] [place], [address], 01/31/2022 12:03:14 02/10/20 23 02/09/2023 XR, chest , 2 view No observ ation record ed. [facility] (Medical Records) [address] [place], [address], 02/10/2023 06:38:55 03/10/20 23 03/10/2023 exerc ise stres s test No observ ation record ed. [facility] (Medical Records) [address] [place], [address], 03/10/2023 15:14:58 03/11/20 23 03/10/2023 US, echoc ardio gram No observ ation record ed. [email or web address] (Medical Records) [address] [facility] [place], [address], 03/12/2023 15:47:52 03/11/20 23 03/09/2023 XR, shoul jemma, 2 or more view No observ ation record ed. [facility] (Medical Records) [address] [place], [address], 03/12/2023 15:32:40 07/14/19 24 07/14/2023 XR, chest , 2 view No observ ation record ed. [email or web address] (Medical Records) [address] [facility] [place], [address], 07/14/2023 15:42:33 07/14/19 24 07/14/2023 CT, head + brain , w/o contr ast No observ ation record ed. [email or web address] (Medical Records) [address] [place], [address], 07/14/2023 15:42:53 07/14/19 24 07/14/2023 CT, cervi kiki spine , w/o contr ast No observ ation record ed. [email or web address] [facility] (Medical Records) [address] [place], [address], 07/14/2023 15:43:31 07/14/19 24 07/14/2023 angio gram (PROC ) No observ ation record ed. [email or web address] [facility] (Medical Records) [address] [place], [address], 07/16/2023 08:31:34 11/15/19 24 11/12/2023 ankle brach ial index No observ ation record ed. [facility] [address], [place], [address], 11/15/2023 08:44:51 12/01/19 24 11/30/2023 myoca rdial perfu yared study w/ eject ion fract ion (PROC ) No observ ation record ed. [facility] [address], [place], [address], 12/01/2023 14:07:11 08/23/19 25 08/22/2024 , lower [facility] mity No observ ation record ed. [email or web address] [facility] (Medical Records) [address] [place], [address], 08/23/2024 07:01:09 08/23/19 25 08/22/2024 , lower extre mity No observ ation record ed. [email or web address] [facility] (Medical Records) [address] [place], [address], 08/23/2024 07:01:31 Result Notes None recorded. Problems Name Problem SNOMED Code Status Onset Date Resolution Date Notes Provider Name and Address Organization Details Recorded Time Hypercho lesterol emia 83329234 Active 2017 Not Available [facility] 11:56:26 Anxiety 87034404 Active 2019 per santiago manuel Not Available [facility] 1 11:56:26 Recurren t depressi on 125807672 Active 2019 per santiago manuel Not Available [facility] 11:56:26 Acid reflux 847187336 Active 2019 Not Available [facility] 11:56:26 Eczema 60076591 Active 2021 KENNY ROMERO [address] [place], [address], [facility] 2 16:42:27 Nasal congesti on 37523517 Active 2021 KENNY ROMERO [address] [place], [address], [facility] 2 11:33:33 Fever with chills 457568211 Active 2021 KENNY ROMERO [address] [place], [address], [facility] 2 11:33:46 Cough 62771057 Active 2021 KENNY ROMERO [address] [place], [address], [facility] 2 11:34:13 COVID-19 797415549 Active 2021 KENNY ROMERO [address] [place], [address], [facility] 2 11:56:32 Follicul itis 08115242 Active 2021 KENNY ROMERO [address] [place], [address], [facility] 2 09:07:31 Hearing loss 50856968 Active 2021 KENNY ROMERO [address] [place], [address], [facility] 2 09:13:31 Blurring of visual image 335953374 Active 2021 KENNY ROMERO [address] [place], [address], [facility] 2 09:15:31 Herpes labialis 5880384 Active 2022 on lip of mouth Mike Da Silva, DO [address] [place], [address], [facility] 3 14:51:23 Gastroes ophageal reflux disease 709870559 Active 2022 KENNY ROMERO [address] [place], [address], [facility] 3 13:37:48 Pain of left shoulder joint 63344050887 001734 Active 2022 KENNY ROMERO [address] [place], [address], [facility] 3 13:39:13 Atypical chest pain 927766322 Active 2022 KENNY ROMERO [address] [place], [address], [facility] 3 13:40:33 Hypokale charles 86500235 Active 2022 KENNY ROMERO [address] [place], [address], [facility] 3 13:43:30 Pericard ial effusion 503558728 Active 2022 KENNY ROMERO [address] [place], [address], [facility] 3 15:32:06 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 Procedures Surgical History Date Name Laterality Status Provider Name and Address Organization Details Recorded Time 10/11/19 18 Most Recent Mammogram completed Allegra Gaming NP, S [address] [place] [address], [address], [facility] 11/09/2017 15:05:50 04/12/19 13 Date of Last Pap Smear completed Allegra Gaming NP, S [address] [place] [address], [address], [facility] 11/09/2017 15:04:15 Dilation of cervical canal completed Allegra Gaming NP, S [address] [place] [address], [address], [facility] 11/09/2017 15:03:49 Imaging Results Imaging Date Name Status LastModified by Organization Details LastModified Time 01/29/2022 MAMMO, screening, digital, bilateral completed [facility] Sched[facility] [address] [place], [address], 01/31/2022 12:03:14 02/09/2023 XR, chest, 2 view completed [facility] (Medical Records) [address] [place], [address], 02/10/2023 06:38:55 03/10/2023 exercise stress test completed [facility] (Medical Records) [address] [place], [address], 03/10/2023 15:14:58 03/10/2023 US, echocardiogram completed [email or web address] (Medical Records) [address] [place], [address], 03/12/2023 15:47:52 03/09/2023 XR, shoulder, 2 or more view completed [facility] (Medical Records) [address] [place], [address], 03/12/2023 15:32:40 07/14/2023 XR, chest, 2 view completed [address] (Medical Records) [address] [place], [address], 07/14/2023 15:42:33 07/14/2023 CT, head + brain, w/o contrast completed [address] (Medical Records) [address] [place], [address], 07/14/2023 15:42:53 07/14/2023 CT, cervical spine, w/o contrast completed [address] (Medical Records) [address] [place], [address], 07/14/2023 15:43:31 07/14/2023 angiogram (PROC) completed [email or web address] (Medical Records) [address] [place], [address], 07/16/2023 08:31:34 11/12/2023 ankle brachial index completed [facility] [address], [place], [address], 11/15/2023 08:44:51 11/30/2023 myocardial perfusion study w/ ejection fraction (PROC) completed [facility] [address], [place], [address], 12/01/2023 14:07:11 08/22/2024 US, lower extremity completed [address] (Medical Records) [address] [place], [address], 08/23/2024 07:01:09 08/22/2024 US, lower extremity completed [address] (Medical Records) [address] [place], [address], 08/23/2024 07:01:31 Procedure Notes None recorded. Medical Equipment None [...] Available Not Available Not Available Afluria Qd (36 mos up)(PF)60 mcg (15 mcg x4)/0.5 [...] Updated DateTime 2 160.02 cm 23.3 kg/m2 55110.1 2 g 98 % 98 % 95 /min 130 mm[Hg] 70 mm[Hg] Jia Corea [facility] 2 08:59:18 Date Recorded Body height Body mass index (BMI) Body weight Heart rate Oxygen saturation Oxygen saturation in Arterial blood by Pulse oximetry Systolic blood pressure Diastolic blood pressure Provider Name and Address Organization Details Last Updated DateTime 3 160.02 cm 23.2 kg/m2 29822.6 g 113 /min 92 % 92 % 144 mm[Hg] 80 mm[Hg] Puja Kilgore [facility] 3 13:34:57 Date Recorded Body height Body mass index (BMI) Body weight Heart rate Oxygen saturation Oxygen saturation in Arterial blood by Pulse oximetry Systolic blood pressure Diastolic blood pressure Provider Name and Address Organization Details Last Updated DateTime 4 160.02 cm 23 kg/m2 97028.0 1 g 74 /min 98 % 98 % 148 mm[Hg] 84 mm[Hg] Satinder Stoelo [facility] 4 10:11:52 Date Recorded Body height Body mass index (BMI) Body weight Heart rate Oxygen saturation Oxygen saturation in Arterial blood by Pulse oximetry Systolic blood pressure Diastolic blood pressure Provider Name and Address Organization Details Last Updated DateTime 4 160.02 cm 23.9 kg/m2 94621.6 9 g 95 /min 96 % 96 % 142 mm[Hg] 82 mm[Hg] Vanessa Price [facility] 4 09:27:45 Date Recorded Body height Body mass index (BMI) Body weight Heart rate Oxygen saturation Oxygen saturation in Arterial blood by Pulse oximetry Systolic blood pressure Diastolic blood pressure Provider Name and Address Organization Details Last Updated DateTime 5 160.02 cm 24.8 kg/m2 90647.9 3 g 66 /min 98 % 98 % 132 mm[Hg] 76 mm[Hg] KENNY ROMERO [address] [place], [address] [place] 5 14:10:21 Social History Question [...] other forms of tobacco or nicotine? No [email or web address] Information not available 02/12/2023 Mental Status None recorded. Family History Nothing Reported. Medical History Condition Response Coronary Artery Disease N Gout N Blood Diseases N Kidney Stones N Hyperthyroidism N Blood Transfusion N Breast Cancer N Depression Y COPD N Hypothyroidism N Lung Disease N Defects or Inherited Disease N Difficulty Swallowing N Anesthesia Complications N Anxiety Disorder Y Meniere's disease N Muscle, Joint, or Bone Problems N Obesity N Arthritis N Polyps N Mental Disorder N Cancer N Varicosities N Stroke N Bladder or Kidney Problems N High Cholesterol Y Liver Disease N Fibromyalgia N Headaches N Kidney Disease N Allergies/Hayfever N Heart Problems N Hospitalizations N Thyroid Problems N GI Problems Y Skin Problems Y Eating Disorder N Anemia N MRSA exposure N Constipation N Mental Illness Y Ovarian Cancer N Diabetes N Seizures/Epilepsy N Congestive Heart Failure (CHF) N Eczema Y Diverticulitis N Abuse/Domestic Violence N Asthma N Reflux/GERD Y Hepatitis N Heart Disease N Pulmonary Embolism N Hypertension Y Osteoporosis N Chicken Pox Autism Spectrum Disorder (ASD) N Thrombophilias N Gynecological History Statement/Question Response Abnormal Pap [...] virus, quadrivalent, preservative 8 completed Xochilt loyola [facility] 01/12/2018 08:34:42 Influenza, split virus, quadrivalent, preservative 1 completed Jia loyola [facility] 12/22/2021 08:20:06 COVID-19, mRNA, LNP-S, PF, 30 mcg/0.3 mL dose 1 completed Jia loyola [facility] 12/22/2021 08:20:24 Influenza, split virus, quadrivalent, preservative 0 completed Shameka loyola [facility] 01/31/2020 13:51:35 COVID-19, mRNA, LNP-S, PF, 30 mcg/0.3 mL dose 1 completed Dhara loyola [facility] 05/03/2020 11:25:03 COVID-19, mRNA, LNP-S, PF, 30 mcg/0.3 mL dose 1 completed Dhara Lyle [facility] 05/24/2020 12:02:38 Past Encounters Encounter ID Performer Location Encounter Start Date Encounter Closed Date Diagnosis/Indication Diagnosis SNOMED-CT Code Diagnosis ICD10 Code Diagnosis Note [id number] Mike Da Silva [facility] Internal [facility] [address] [facility],[place] [address] 10/08/2017 14:25:08 10/08/2017 15:56:51 Diarrhea 87028944 R19.7 Essential hypertension 79177286 I10 stable Gastroesop hageal reflux disease 454991828 K21.9 [id number] Mike Da Silva [facility] Internal [facility] [address] [facility],[place] [address] [facility] [place] [place] [address] 10/15/2017 14:00:12 10/15/2017 16:16:30 Impaired fasting glycemia 664007795 R73.01 A1C 5.4 follow Diarrhea 08644542 R19.7 Screening procedure 2012 5006 Z13.9 [id number] Mike Da Silva [facility] Internal [facility] [address] [facility],[place] [address] 11/09/2017 14:44:19 11/09/2017 16:23:45 Adult health examination 676505707 Z00.01 Diarrhea 95596060 R19.7 Hypercholesterolemia 136 93045 E78.00 Right lowe r quadrant pain 881618676 R10.31 Essential hypertension 24339794 I10 stable Gynecologi c examination 80527906 Z01.419 [id number] Mike Da Silva [facility] Internal [facility] [address] [facility], [place] [address] 12/06/2017 11:31:29 12/06/2017 13:32:39 Hypercholesterolemia 87866898 E78.00 Did not complete yet Essential hypertension 33038752 I10 stable [id number] Mike Da Silva [facility] Internal [facility] [address] [facility], [place] [address] 05/23/2019 09:17:53 05/23/2019 10:14:02 Acid reflux 802221641 K21.9 Anxiety 83426695 F41.9 Essential hypertension 54487232 I10 stable Hypercholesterolemia 136 11821 E78.00 Recurrent depression 191 105224 F33.9 Dyspareunia 61121077 N94 .10 will try estrace risks/bene fits discussed advised to start with 3x/week, but may taper to once or twice per week if sx relief acheived at lower doses [id number] Mike Da Silva [facility] Internal Medicine [address] [facility] [address] [place] [address] 12/19/2019 14:27:10 12/19/2019 14:51:32 Loss of hair 201948107 L65.9 will check a few labs and see if it's related to that could just be hereditary liked we discussed or hormone related as well also has been doing keto diet so could also be diet related Rosacea 139523030 L71.9 needs refills, doesn't want to go see derm right now due to pandemic [id number] Mike Da Silva [facility] Internal Medicine [address] [facility],[place] [address] 04/01/2020 11:18:38 04/01/2020 11:56:02 Cough 73021004 R05 will give medication for cough relief at night as it is disrupting her sleep Anterior rhinorrhea 2771 59124 J34.89 will retest her for COVID as it may have been a false negative a quiet a few of her co workers have come back positive Fever 223290942 R50.9 resolved [id number] Mike Da Silva [facility] [address] [facility],[place] [address] 10/21/2020 10:28:18 10/21/2020 11:08:50 Recurrent depression 597868593 F33.9 stable Osteoarthritis 878609942 M19.90 discussed optionswil l try topical for now Anxiety 45500186 F41.9 stable Essential hypertension 37189476 I10 BP fine today Hyperlipidemia 77508809 E78.5 will recheck [id number] Mike Da Silva [facility] [address] [facility] [address] [place] [address] 08/20/2021 09:54:27 08/20/2021 12:15:41 Suspected COVID-19 089004952 Z20.822 will get PCR testwill also test for the flu at Nasal congestion 7067555 0 R09.81 can use OTC decongesta nts, do not use sudafed due to HTN Fever with chills 008218 006 R50.81 continue with APAP and ibu for treatment Cough 47030481 R05.1 will start on cough suppressan t and abx for worsening respirator y symptoms [id number] [facility] [address] [facility],[place] [address] 12/22/2021 08:50:36 12/22/2021 09:27:34 Recurrent depression 463464477 F33.9 stable Active or passive immunization 606027212 Z23 advised 12/22/21 Adult [facility] th examination 365872200 Z00.00 BP is excellent Folliculitis 33678873 L7 3.8 will trial a two week period Hearing loss 97651889 H9 0.3 will fu with referral Blurring o f visual image 421851994 H53.8 will fu with eye doctor Seen in necology clinic 718585140 Z76.89 will fu with [facility] [place] [address] [id number] [facility] [address] [facility],[place] [address] 02/12/2023 13:28:26 02/12/2023 14:17:22 Recurrent depression 048022502 F33.9 stable Gastroesop hageal reflux disease 958382581 K21.9 agreed to f/u with GI for endoscope and colonoscop y Pain of le ft shoulder joint 0385958191 3466378 M25.512 mild intermitte nt painprobab ly OA, unrelated to the chest pain Atypical chest pain 1025 61131 R07.89 will set up with Echo and Stress test for recurrent Essential hypertension 29844418 I10 agreed to switch to amlodipine Hypokalemia 48211121 E87 .6 will set up with recheck K level [id number] [facility] [address] [facility],[place] [address] 07/23/2023 09:55:49 07/23/2023 13:54:05 Essential hypertension 56839903 I10 agreed to switch out medication to metoprolol , see if that also helps with pain and palpitatio ns Atypical chest pain 1025 10061 R07.89 fu with cardio 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 will set up with CT to check area specifical ly as it was an incidental finding on echo [id number] Mike Da Silva [facility] Internal Medicine [address] [facility] [address],[place] [facility] [address] 08/13/2023 09:16:18 08/13/2023 16:06:55 Atypical chest pain 481857301 R07.89 fu with cardio Essential hypertension 39692686 I10 stable 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 has fu with ENT coming up Depression screening 171 460836 Z13.31 stable [id number] Mike Da Silva [facility] Medicine [address] [facility] [address] [place] [address] 06/13/2024 13:59:36 06/13/2024 16:54:53 Hyperlipidemia 41538376 E78.41 will recheck BW Essential hypertension 55172701 I10 stable Anxiety 54643228 F41.1 stable Health Concerns Section Related Observation LastModified by Organization Detai ls LastModified Time None Recorded Concern Status LastModified by Organization Details LastModified Time None Recorded Advance Directives Directive None Recorded Payers Encounter Date Sequence Insurance Name Policy Number Policy Metcalf Covered Member ID Metcalf Member ID Guarantor Name 12/22/2021 1 [facility] [id number] Paulina Eric Nitish [id number] Paulina C Nitish 02/12/2023 1 [facility]: [facility] [id number] Paulina C Nitish [id number] Paulina C Nitish 07/23/2023 1 [facility] Paulina C Nitish [id number] Paulina C Nitish 08/13/2023 1 [facility] Paulina C Nitish [id number] Paulina C Nitish 06/13/2024 1 [facility] Paulina C Nitish [id number] Paulina C Nitish Notes Date Note [...] Vaccine, discussed side effects KENNY ROMERO [address] [place], [address], [facility] 12/22/2021 09:25:46 3 text/html ER [...] set up with amlodipine KENNY ROMERO [address] [place], [address], [facility] 02/12/2023 13:47:36 4 text/html ER [...] weeks to check BP KENNY ROMERO [address] [place], [address], [facility] 07/23/2023 10:35:07 4 text/html f/u [...] any side effects on KENNY ROMERO [address] [place], [address], [facility] 08/13/2023 09:47:56 5 text/html f/u [...] gets meds from them KENNY ROMERO [address] [place], [address], [facility] 06/13/2024 14:45:28 OBGyn Episode No OBEpisode recorded.
--- OUTSIDE RECORDS SUMMARY | 2024-08-28 17:11 | XMS_ITS | Data Portability ---
Author Organization [place] - [facility], Allergy Address [address] [address] Assessment No assessment recorded. Plan of Treatment Reminders Order Date Submit Date Provider Last Modified By Organization Details Last Modified Time Details Appointments None record ed. Lab None record ed. Referral None record ed. Procedures None record ed. Surgeries None record ed. Imaging None record ed. Medication Orders None record ed. Patient TargetsNo targets recorded. Patient InstructionsNo instructions recorded. Reason for Referral None Reported. Results Created Date Observation Date Name Description Value Unit Range Abnormal Flag Note LastModifiedBy Organization Detail LastModifiedTime 12/01/19 24 07/14/2023 imagi ng/di agnos tic resul t No observ ation record ed. [email or web address] Available 17:48:43 12/01/1907/14/2023 imagi ng/di agnos tic resul t No observ ation record ed. [email or web address] Available 17:48:45 12/01/19 24 07/14/2023 imagi ng/di agnos tic resul t No observ ation record ed. [email or web address] Available 17:48:46 12/01/19 24 07/14/2023 imagi ng/di agnos tic resul t No observ ation record ed. [email or web address] Available 17:48:51 12/01/19 24 09/03/2023 imagi ng/di agnos tic resul t No observ ation record ed. [email or web address] Available 17:49:05 12/01/19 24 03/10/2023 imagi ng/di agnos tic resul t No observ ation record ed. [email or web address] Not Available 17:49:09 Result Notes None recorded. Problems Name Problem SNOMED Code Status Onset Date Resolution Date Notes Provider Name and Address Organization Details Recorded Time Neck swelling 185668651 Active 2023 IRMA SCHAEFFER MD [address] [facility] [facility], [place], [address] , [facility] - [facility] 4 16:42:40 Cyst of pharynx 94271653 Active 2023 IRMA SCHAEFFER MD 100 [facility],ARY [facility], [place], [address] , [facility] - [facility] 4 06:28:13 Abnormal findings on diagnostic imaging of skull and head 537338848 Active 2023 IRMA SCHAEFFER MD [address] [facility],[place] [address], [place], [address] , [place] - [facility] 4 06:28:22 Disorder of pharynx 41598563 Active 2023 Cyst of pharyn x; Note: Date Diagno sed: 024 4:57 PM (J39.2 ) Not Available [facility] 4 03:10:19 Problem Notes None recorded. Procedures Surgical History Date Name Laterality Status Provider Name and Address Organization Details Recorded Time 10/19/19 24 Fiberoptic Laryngoscopy (Comprehensive) completed IRMA SCHAEFFER MD 100 [facility],[place] [address], [place], [address], [facility] - [facility] 10/19/2023 13:52:27 Imaging Results Imaging Date Name Status LastModified by [facility] Details LastModified Time 07/14/2023 imaging/diag nostic result completed Information not available 12/01/2023 17:48:43 07/14/2023 imaging/diag nostic result completed Information not available 12/01/2023 17:48:45 07/14/2023 imaging/diag nostic result completed Information not available 12/01/2023 17:48:46 07/14/2023 imaging/diag nostic result completed Information not available 12/01/2023 17:48:51 09/03/2023 imaging/diag nostic result completed Information not available 12/01/2023 17:49:05 03/10/2023 imaging/diag nostic result completed Information not available 12/01/2023 17:49:09 Procedure Notes None recorded. Medical Equipment None Reported. Allergies No known drug allergies Medications Name Sig Start Date Stop Date Status Note LastModified by Organization Details LastModified Time atorvasta tin 10 mg tablet active Medicati on ID: [id number] B rand Name: atorvast atin Sen d Method: E-Prescr ibed Sub s Allowed: subs OK Medic ationGen ericName : atorvast atin Not Available Not Available Not Available valacyclo vir 1 gram tablet TAKE ONE TABLET BY MOUTH EVERY 12 HOURS FOR 7 DAYS 10/18 completed Not Available Not Available Not Available clonazepa m 0.5 mg tablet active Medicati on ID: [id number] B rand Name: clonazep am Send Method: E-Prescr ibed Sub s Allowed: subs OK Medic ationGen ericName : clonazep am Not Available Not Available Not Available amlodipin e 5 mg tablet active Medicati on ID: [id number] B rand Name: amlodipi ne Send Method: E-Prescr ibed Sub s Allowed: subs OK Speci al Instruct ion: TAKE ONE TABLET BY MOUTH ONCE DAILY Me dication GenericN gato: amlodipi ne Not Available Not Available Not Available lamotrigi ne 25 mg tablet active Medicati on ID: [id number] B rand Name: lamotrig ine Send Method: E-Prescr ibed Sub s Allowed: subs OK Medic ationGen ericName : lamotrig ine Not Available Not Available Not Available clonidine HCl 0.2 mg tablet active Medicati on ID: [id number] B rand Name: clonidin e HCl Send Method: E-Prescr ibed Sub s Allowed: subs OK Medic ationGen ericName : clonidin e HCl Not Available Not Available Not Available losartan 25 mg tablet TAKE ONE TABLET BY MOUTH TWICE A DAY - NEED APPOINTM ENT FOR REFILLS active Not Available Not Available No t Available furosemid e 20 mg tablet TAKE ONE TABLET BY MOUTH ONCE DAILY FOR 14 DAYS 10/18 completed Not Available Not Available Not Available metoprolo l succinate ER 25 mg tablet,ex tended release 24 hr active Medicati on ID: [id number] B rand Name: metoprol ol succinat e Send Method: E-Prescr ibed Sub s Allowed: subs OK Medic ationGen ericName : metoprol ol succinat e Not Available Not Available Not Available Pepcid 20 mg tablet Take 1 tablet twice a day by oral route. active Not Available Not Available No t Available sertralin e 50 mg tablet active Medicati on ID: [id number] B rand Name: sertrali ne Send Method: E-Prescr ibed Sub s Allowed: subs OK Medic ationGen ericName : sertrali ne Not Available Not Available Not Available Prilosec 10 mg oral suspensio n,delayed release Take 2 packets every day by oral route. active Not Available Not Available No t Available Vitals Date Recorded Body height Body mass index (BMI) Body weight Provider Name and Address Organization Details Last Updated DateTime 10/19/2023 160.02 cm 23 kg/m2 30731.01 g Alexandrea Trammell [facility] 10/19/2023 13:51:34 Social History None recorded. Functional Status None recorded. Mental Status None recorded. Family History Nothing Reported. Medical History Condition Response Hypertension Y Anxiety Y Gynecological HistoryNo gynecological history recorded. Obstetrics History GPAL:G 0 P 0 0 0 0 Past Encounters Encounter ID Performer Location Encounter Start Date Encounter Closed Date Diagnosis/Indication Diagnosis SNOMED-CT Code Diagnosis ICD10 Code Diagnosis Note [id number] IRMA SCHAEFFER MD [facility] on [address] [place] [address] 09/01/2023 15:54:40 09/13/2023 15:51:11 Neck swelling 586613604 R22.1 We reviewed by phone the findings on the CT scan. This area was assessed during her flexible laryngosco py. We will just reassess again in 2 months. All questions answered. [id number] IRMA SCHAEFFER MD [facility] on [address] [place] [address] 10/19/2023 13:43:57 10/19/2023 16:43:04 Cyst of pharynx 45477371 J39.2 63-year-ol d female remains asymptomat ic for any feelings of globus, sore throat, dysphagia. After her previous visit I was able to review the images from her CT at [place] showing some thickening in the posterior pharynx at the level of the arytenoids .I did repeat flexible laryngosco py today, and I do not see any mass lesion. We discussed it is possible there may be a submucosal cyst, but there are no overlying worrying mucosal changes. I would recommend reassessme nt should she develop any symptoms including globus or dysphagia. Abnormal f indings on diagnostic imaging of skull and head 403356958 R93.0 Health Concerns Section Related Observation LastModified by Organization Detai ls LastModified Time None Recorded Concern Status LastModified by Organization Details LastModified Time None Recorded Advance Directives Directive None Recorded Payers Insurance Date Sequence Insurance Name Policy Number Policy Metcalf Covered Member ID Metcalf Member ID Guarantor Name 10/19/2023 1 [facility] Paulina Talbert [id number] Paulina Talbert Notes Date Note Type Note Provider Name and Address Organization Details Recorded Time 10/19/2023 text/html Patient denies a ny changes in health since her last visit. She denies any sore throat, globus, dysphagia. PV: 63-year-old female presents today for evaluation of incidental findings seen on CT of the head and spine at [place] after a fall. There was no acute intracranial or cervical spine pathology. There was cervical lordotic reversal and cervical spondylosis. There was a posterior tracheal tissue density, unclear if supraglottic versus esophageal. Patient reports she did recently have an upper endoscopy which was normal.She denies any sore throat. She does have a history of reflux. IRMA SCHAEFFER MD [address] [place] [address], [place], [address], [place] - [facility] 10/20/2023 06:32:20 OBGyn Episode No OBEpisode recorded.
[2024-08-28 17:12] VITALS: BP 185/94; PULSE 75; RESP 16; TEMP 36.8; O2SAT 96
--- NOTE | 2024-08-28 17:58 | PC.NURSE ---
Patient presents with right LR pain increasing with ambulation. Patient was seen for same complaint last week and work up was negative for a blood clot. Lungs clear bilat. Respirations even and non-labored. Abdomen soft, non-tender with positive bowel sounds. Good ROM noted to right LE. Positive pedal pulses with no edema.
[2024-08-28 18:26] VITALS: BP 155/77; PULSE 66; RESP 19; TEMP 36.6; O2SAT 98
[2024-08-28 18:44] VITALS: BP 155/77; PULSE 66; RESP 19; TEMP 36.6; O2SAT 98
== END 2024-08-28 18:46 | disposition home or self-care (01) ==
PROVIDERS: Physician Assistant Medical; Emergency Provider Emergency Medicine; PCP Internal Medicine
DX: M79.604 Pain in right leg (principal); I10 Essential (primary) hypertension; E78.5 Hyperlipidemia, unspecified; Z79.899 Other long term (current) drug therapy
CPT/HCPCS: 36415; 80053; 83735; 85025; 99283; 99284

== ENCOUNTER 2024-09-18 15:31 | Outpatient (REF) | payer OTHER, SELFPAY ==
--- NOTE | ~2024-09-18 | XR_ITS ---
EXAMINATION: XR KNEE, RIGHT CLINICAL INFORMATION: RIGHT KNEE PAIN. COMPARISON: None available. TECHNIQUE: AP and lateral views of the right knee. FINDINGS: There is no joint effusion. There is mild narrowing of the lateral greater than medial joint space. No osteophytes are evident. XR/XR knee RT 2V IMPRESSION: Mild nonspecific joint space narrowing, greater in the lateral compartment. Electronically signed by: Vern Bustillos MD 09/18/2024 04:50 PM EDT
--- OUTSIDE RECORDS SUMMARY | 2024-09-18 17:14 | XMS_ITS | Continuity of Care Document ---
Author Organization [facility] Address [address] [facility] [place] [address] [place] [address] Assessment No assessment recorded. Plan of Treatment Reminders Order Date Submit Date Provider Last Modified By Organization Details Last Modified Time Details Appointments None record ed. Lab None record ed. Referral None record ed. Procedures None record ed. Surgeries None record ed. Imaging XR, knee, 1 or 2 view 025 09/16/19 [facility] [place] [address], [address], 16:54:23 Medication Orders None record ed. Patient TargetsNo targets recorded. Patient InstructionsNo instructions recorded. Reason for Referral None Reported. Results Created Date Observation Date Name Description Value Unit Range Abnormal Flag Note LastModifiedBy Organization Detail LastModifiedTime 08/23/1908/22/2024 US, lower extre mity No observ ation record ed. [email or web address] [facility] (Medical Records) [address] [place], [address], 08/23/2024 07:01:09 08/23/19 25 08/22/2024 US, lower extre mity No observ ation record ed. [email or web address] [facility] (Medical Records) [address] [place], [address], 08/23/2024 07:01:31 09/19/19 25 09/18/2024 XR, knee, 1 or 2 view No observ ation record ed. [place] [address] [place], [address], 09/18/2024 16:54:23 09/19/19 25 09/18/2024 XR, knee, 1 or 2 view No observ ation record ed. [address] [place], [address], 09/18/2024 16:55:07 Result Notes None recorded. Problems Name Problem SNOMED Code Status Onset Date Resolution Date Notes Provider Name and Address Organization Details Recorded Time Hypercho lesterol emia 58714690 Active 2017 Not Available [facility] 11:56:26 Anxiety 49664093 Active 2019 per santiago manuel Not Available [facility] 11:56:26 Recurren t depressi on 259095632 Active 2019 per santiago manuel Not Available [facility] 11:56:26 Acid reflux 457885559 Active 2019 Not Available [facility] 11:56:26 Eczema 78458223 Active 2021 KENNY ROMERO [address] [place], [address], [facility] 2 16:42:27 Nasal congesti on 15961152 Active 2021 KENNY ROMERO [address] [place], [address], [facility] 2 11:33:33 Fever with chills 069736228 Active 2021 KENNY ROMERO [address] [place], [address], [facility] 2 11:33:46 Cough 24977691 Active 2021 KENNY ROMERO [address] [place], [address], [facility] 2 11:34:13 COVID-19 672507325 Active 2021 KENNY ROMERO [address] [place], [address], [facility] 2 11:56:32 Follicul itis 98873588 Active 2021 KENNY ROMERO [address] [place], [address], [facility] 2 09:07:31 Hearing loss 87173951 Active 2021 KENNY ROMERO [address] [place], [address], [facility] 2 09:13:31 Blurring of visual image 092146779 Active 2021 KENNY ROMERO [address] [place], [address], [facility] 2 09:15:31 Herpes labialis 6191216 Active 2022 on lip of mouth Mike Da Silva DO [address] [place], [address], [facility] 3 14:51:23 Gastroes ophageal reflux disease 912340720 Active 2022 KENNY ROMERO [address] [place], [address], [facility] 3 13:37:48 Pain of left shoulder joint 86679505547 908202 Active 2022 KENNY ROMERO [address] [place], [address], [facility] 3 13:39:13 Atypical chest pain 080759604 Active 2022 KENNY ROMERO [address] [place], [address], [facility] 3 13:40:33 Hypokale charles 09688056 Active 2022 KENNY ROMERO [address] [place], [address], [facility] 3 13:43:30 Pericard ial effusion 342147723 Active 2022 KENNY ROMERO [address] [place], [address], [facility] 3 15:32:06 Disorder of trachea 06468932 Active 2023 KENNY ROMERO [address] [place] [address], [address], [facility] 4 10:30:22 Hyperlip idemia 53394802 Active 2024 KENNY ROMERO [address] [place] [address], [address], [facility] 5 14:42:17 Medial tibial stress syndrome of right lower leg Active 2024 Mike Da Silva DO [address] [place] [address], [address], [facility] 5 21:03:36 [facility] hyperten yared 16723379 Active 2017 Not Available [facility] 1 11:56:26 Problem Notes None recorded. Procedures Surgical History Date Name Laterality Status Provider Name and Address Organization Details Recorded Time 10/11/19 18 Most Recent Mammogram completed Allegra Gaming NP, S [address] [place] [address], [address], [facility] 11/09/2017 15:05:50 04/12/19 13 Date of Last Pap Smear completed Allegra Gaming NP, S [address] [place] [address], [address], [facility] 11/09/2017 15:04:15 Dilation of cervical canal completed Allegra Gaming NP, S [address] [place] [address], [address], [facility] 11/09/2017 15:03:49 Imaging Results None recorded. Procedure Notes None recorded. Medical Equipment None Reported. Allergies No known drug allergies Medications Name Sig Start Date Stop Date Status Note LastModified by Organization Details LastModified Time amoxicillin 500 mg capsule TAKE ONE CAPSULE BY MOUTH EVERY 8 HOURS WITH FOOD UNTIL GONE active Not Available Not Available No t Available acetaminoph en 325 mg tablet TAKE 1 TABLET BY MOUTH FOUR TIMES DAILY NEEDED FOR PAIN active Not Available Not Available No t Available atorvastati n 10 mg tablet TAKE ONE TABLET BY MOUTH EVERY DAY 2024 active Not Available Not Available Not Avai lable azithromyci n 250 mg tablet TAKE TWO TABLETS BY MOUTH ONE DOSE ON THE FIRST DAY, THEN TAKE ONE TABLET DAILY THEREAFTE R. 12/22 completed Not Available Not Available Not Available ibuprofen 800 mg tablet TAKE ONE TABLET BY MOUTH EVERY 8 HOURS WITH FOOD active Not Available Not Available No t Available valacyclovi r 1 gram tablet TAKE ONE TABLET BY MOUTH EVERY 12 HOURS FOR 7 DAYS 08/12 completed Not Available Not Available Not Available prednisone 20 mg tablet TAKE 3 TABLETS BY MOUTH DAILY FOR ASTHMA FOR 5 DAYS active Not Available Not Available No t Available clonazepam 0.5 mg tablet TAKE ONE TABLET BY MOUTH TWICE A DAY active Not Available Not Available No t Available amlodipine 5 mg tablet TAKE ONE TABLET BY MOUTH ONCE DAILY 03/26 completed Not Available Not Available Not Available ciprofloxac in 500 mg tablet 10/15 completed Not Available Not Available Not Available acetaminoph en 500 mg tablet TAKE ONE TABLET BY MOUTH EVERY 6 HOURS active Not Available Not Available No t Available triamcinolo ne acetonide 0.1 % topical [...] tablet twice a day by oral route. 08/29 completed Not Available Not Available Not Available metronidazo le 0.75 % topical cream [...] Not Available Not Available No t Available diclofenac sodium 75 mg tablet,jose r yed release TAKE ONE TABLET BY MOUTH TWICE A DAY FOR 14 DAYS active Not Available Not Available No t Available codeine 10 mg-guaifene sin 100 mg/5 mL oral liquid TAKE 10ML BY MOUTH EVERY 4 HOURS FOR 7 DAYS 12/22 completed Not Available Not Available Not Available furosemide 20 mg tablet TAKE ONE TABLET BY MOUTH ONCE DAILY FOR 14 DAYS 08/12 completed Not Available Not Available Not Available gabapentin 100 mg capsule TAKE 1 CAPSULE BY MOUTH TWICE DAILY active Not Available Not Available No t Available metoprolol succinate ER 25 mg tablet,exte nded release 24 hr TAKE ONE TABLET BY MOUTH EVERY DAY active Not Available [...] Not Available Vitals Date Recorded Body height Systolic blood pressure Diastolic blood pressure Provider Name and Address Organization Details Last Updated DateTime 09/15/2024 160.02 cm 132 mm[Hg] 82 mm[Hg] [facility] 09/15/2024 16:12:02 Social History Question Answer Notes LastModified by Organizat ion Details LastModified Time Tobacco Smoking Status Former Smoker 20 years Not Available [facility] 02/13/2020 03:36:23 What Was The Date Of Your Most Recent Tobacco Screening? 09/15/2024 [email or web address] Information not available 09/15/2024 Sex: Unknown Functional Status Question Answer Note LastModified by Organization D etails LastModified Time Do you or have you ever used any other forms of tobacco or nicotine? No [email or web address] Information not available 02/12/2023 Mental Status None recorded. Family History Nothing Reported. Medical History Condition Response Coronary Artery Disease N Gout N Kidney Stones N Blood Diseases N Hyperthyroidism N Blood Transfusion N Breast Cancer N COPD N Depression Y Lung Disease N Hypothyroidism N Defects or Inherited Disease N Difficulty Swallowing N Anesthesia Complications N Anxiety Disorder Y Meniere's disease N Muscle, Joint, or Bone Problems N Obesity N Arthritis N Polyps N Mental Disorder N Cancer N Stroke N Varicosities N Bladder or Kidney Problems N High Cholesterol Y Liver Disease N Fibromyalgia N Headaches N Kidney Disease N Allergies/Hayfever N Heart Problems N Hospitalizations N Thyroid Problems N GI Problems Y Eating Disorder N Skin Problems Y Anemia N MRSA exposure N Constipation N Mental Illness Y Diabetes N Ovarian Cancer N Seizures/Epilepsy N Congestive Heart Failure (CHF) N Eczema Y Abuse/Domestic Violence N Diverticulitis N Asthma N Reflux/GERD Y Hepatitis N Heart Disease N Pulmonary Embolism N Hypertension Y Chicken Pox Autism Spectrum Disorder (ASD) N Osteoporosis N Thrombophilias N Gynecological History Statement/Question Response [...] split virus, quadrivalent, preservative 8 completed Xochilt Jones [facility] 01/12/2018 08:34:42 Influenza, split virus, quadrivalent, preservative 1 completed Jia Corea [facility] 12/22/2021 08:20:06 COVID-19, mRNA, LNP-S, PF, 30 mcg/0.3 mL dose 1 completed Jia loyola [facility] 12/22/2021 08:20:24 Influenza, split virus, quadrivalent, preservative 0 [facility] 01/31/2020 13:51:35 COVID-19, mRNA, LNP-S, PF, 30 mcg/0.3 mL dose 1 completed Dhara loyola [facility] 05/03/2020 11:25:03 COVID-19, mRNA, LNP-S, PF, 30 mcg/0.3 mL dose 1 completed Dhara Lyle nir [facility] 05/24/2020 12:02:38 Past Encounters Encounter ID Performer Location Encounter Start Date Encounter Closed Date Diagnosis/Indication Diagnosis SNOMED-CT Code Diagnosis ICD10 Code Diagnosis Note [id number] Miek Da Silva [facility] [address] [facility] [address] 08/29/2024 10:59:54 08/29/2024 12:14:45 Depression screening 675456187 Z13.31 neg Medial tib ial stress syndrome of right lower leg 1506209946 6345993 S86.891A Essential hypertension 96221029 I10 will monitor at home [id number] Mike Da Silva [facility] [address] [facility] [facility] [place] [address] 09/15/2024 16:06:46 09/18/2024 09:52:27 Medial tibial stress syndrome of right lower leg 6351599937 2191661 S86.891A S86.891D note given for work for pt to continue to stay outXR knee given to patient as well to evaluate for any other degenerati ve changes or complicati ons Health Concerns Section Related Observation LastModified by Organization Detai ls LastModified Time None Recorded Concern Status LastModified by Organization Details LastModified Time None Recorded Payers Encounter Date Sequence Insurance Name Policy Number Policy Metcalf Covered Member ID Metcalf Member ID Guarantor Name 09/15/2024 1 [facility] Paulina Talbert [id number] Paulina Talbert Notes Date Note Type Note Provider Name a nd Address Organization Details Recorded Time 5 text/html 2 week f/u per MB the patient was seen in the ER, did not find a blood clot based on her pain in the R leg that they r/othe patient reports that she hasn't had any imaging to check on the kneepain is anterior still along the proximal tibialis anterior, some mild amount of swellingno pain elicited with flexion or extension passively while sittingpain still happens when she is walkingdeveloping a little bit of pain of the L side most likely from overcompensating the patient did have an ortho referral placed by HELLEN last weekthe patient's appt is on 10/17 couldn't get the diclofenac, said insurance didn't cover itbut she is taking aleverecommended continue use with rest and ice until she is seen by ortho also recommended right knee joint imaging to assess the proximal tibia and knee joint to see if there's any compounding issues like degenerative changes or issues with insertion at the condyle (enthesopathy) medial and lateral joint line normal, no pain KENNY ROMERO [address] [facility], [place], [address], [facility] 09/15/2024 16:41:23 OBGyn Episode No OBEpisode recorded.
== END 2024-09-18 15:32 | disposition home or self-care (01) ==
LOC: HO.HMGCX 15:31
PROVIDERS: PCP Physician Assistant; Visit Provider Physician Assistant
DX: S86.891D Other injury of other muscle(s) and tendon(s) at lower leg level, right leg, subsequent encounter (principal)
CPT/HCPCS: 73560

== ENCOUNTER → 2024-09-18 15:39 | Outpatient (BNV) | payer OTHER, SELFPAY | PROVIDERS: PCP Physician Assistant; Visit Provider Radiology Diagnostic Radiology | DX: M25.561 Pain in right knee (principal) | CPT/HCPCS: 73560 ==